=== PATIENT | female | born 1950 | race Caucasian/White ===

== ENCOUNTER → 2019-05-12 12:24 | Outpatient (CLI) | payer MEDICARE, SELFPAY ==
--- NOTE | 2019-05-12 | IMM_PTH ---
PATIENT: VY ALMANZA LOC: [facility] U#:[id number] AGE/SX: 74/F ROOM: RE05/12/[address]: Dr. Alex Rocha MD : 1950 BED: DIS: SPEC #: [id number] RECD: 05/13/19 14:07 STATUS: CINDY REOskar #: [id number] BRIAN: 05/12/19 00:[address]: Alex Rocha DEPT: IMMUNOHISTOCHEMISTRY RECD BY: Shanel Curiel Tissues: Stomach, NOS Procedures: H Pylori (initial) PHYSICIAN & INSTITUTION [place] [id number] SPECIMEN INFORMATION: Tissue Source: Antral biopsy Clinical Info: R13.10, R09.89 Specimen Number: [id number] CPT code: 48990 METHODOLOGY: Deparaffinized sections of prefer/formalin-fixed tissue or PAP/DQ stained slides are incubated with monoclonal/polyclonal antibodies/oligonucleotide probes. Localization is made via biotin free immunoperoxidase method. Appropriate controls are performed and reacted as expected. Results on target cell population are indicated in the following table: RESULTS: ANTIBODY / CLONE RESULT H Pylori (polyclonal) negative These tests were developed and their performance characteristics determined by [facility]. They may not have been cleared or approved by the [place]. Food and Drug Administration. The FDA has determined that such clearance or approval is not necessary. INTERPRETATION: Antral biopsy: Negative for Helicobacter pylori organisms. AM:jessi 05/14/19
--- NOTE | 2019-05-12 | EGD_PTH ---
PATIENT: VY ALMANZA [facility] U#:[id number] AGE/SX: 74/F ROOM: RE05/12/[address]: Dr. Alex Rocha MD : 1950 BED: DIS: SPEC #: [id number] RECD: 05/13/19 12:23 STATUS: CINDY ANURADHA #: [id number] BRIAN: 05/12/19 00:[address]: Alex Rocha DEPT: SURGICAL PATHOLOGY RECD BY: Boom Centeno Tissues: Gastric mucous membrane Procedures: Surgery Specimen Level IV HEADER OPERATION: EGD with biopsy PRE-OP DIAGNOSIS: R13.10, R09.89 TISSUE SUBMITTED: Antral biopsy H/H MICROSCOPIC DIAGNOSIS Gastric antrum, biopsy: Mild chronic gastritis. See comment. AM:jessi 05/14/19 COMMENT The results of immunohistochemistry for Helicobacter pylori will be reported separately ([id number]). MICROSCOPIC DESCRIPTION Slides are reviewed. GROSS DESCRIPTION Received in fixative is one container labeled with the patient's name and designated antral biopsy. The specimen consists of two irregular fragments of light ortiz soft tissue that in aggregate measure 0.4 x 0.3 x 0.1 cm. The specimen is totally submitted in one cassette. / SJ:rg 05/13/19 TC:3 CPT: 59250
== END ==
PROVIDERS: Referring Provider Internal Medicine Gastroenterology; Visit Provider Internal Medicine Gastroenterology
DX: R13.10 Dysphagia, unspecified (principal); R09.89 Other specified symptoms and signs involving the circulatory and respiratory systems
CPT/HCPCS: 88305; 88342

== ENCOUNTER 2023-05-24 14:28 | Emergency (ER) | payer MEDICARE, SELFPAY ==
[2023-05-24 14:30] VITALS: BP 170/115; PULSE 113; RESP 18; TEMP 36.8; O2SAT 95; BMI 38.7
--- NOTE | 2023-05-24 14:48 | CT_ITS ---
STUDY: CT BRAIN WITHOUT CONTRAST REASON FOR EXAM: Female, 72 years old. Deficit RADIATION DOSAGE (If Supplied By Facility): CTDIvol = ( 44.99 ) mGy, DLP = ( 745.49 ) mGycm TECHNIQUE: Transaxial CT imaging of the brain was performed without administration of intravenous contrast material. Individualized dose optimization techniques were used for this CT. COMPARISON: No relevant priors. FINDINGS: Normal soft tissue structures. Normal calvarium. Normal size ventricles and extra-axial spaces for the patient''s age. Mild white matter microangiopathic ischemic changes of the cerebral hemispheres. Normal basal ganglia and thalami. Normal brainstem. Normal cerebellum. There is no intracranial hemorrhage. There are no findings of an acute ischemic infarction. Normal visualized paranasal sinuses. CT/Brain/Head without Contrast IMPRESSION: Age-related changes of the brain. Electronically Signed: Samy Cotto DO at 17:03 EST ,
--- NOTE | 2023-05-24 14:49 | EKG12_ITS ---
Test Reason : DYSRHYTHMIA Blood Pressure : / mmHG Vent. Rate : 094 BPM Atrial Rate : 094 BPM P-R Int : 176 ms QRS Dur : 088 ms QT Int : 380 ms P-R-T Axes : 056 057 023 degrees QTc Int : 475 ms Normal sinus rhythm Low voltage QRS Borderline ECG Confirmed by VOLODYMYR SUE, SARINA ([id number]), video editor RUBIN LUNDY ([id number]) on 05/28/2023 7:01:39 AM Referred By: FAVIAN Confirmed By:CLARY HELM MD
--- NOTE | 2023-05-24 14:53 | EDS_ITS ---
HPI <Dr. Bandar Vizcaino DO - Last Filed: 05/26/23 07:14> History of Present Illness Chief Complaint: Neuro S/Sx Informant: patient Onset/Context/Timing Onset: Weeks (1) Context: Gradual Onset Timing: Continuous Quality: Tingling Location: Left arm Worsened by: Nothing Relieved by: Nothing Narrative Narrative: Patient presents with left arm tingling and lightheadedness that has been constant for the past week. Patient states she has had some constant tingling in her left arm. Patient states nothing makes it better or worse. Patient states she has been having some intermittent lightheadedness. Patient states this is worse with prolonged sitting and then standing up quickly. Patient denies any chest pain. Patient denies any shortness of breath. Patient denies any trauma or injury. Patient denies any weakness. [facility] <Dr. Bandar Vizcaino DO - Last Filed: 05/26/23 07:14> [facility] Medical History Anxiety HTN (hypertension) Home Medications amlodipine 2.5 mg tablet mg 05/24/23 [History Last Taken Unknown] hydrochlorothiazide 25 mg tablet mg 05/24/23 [History Last Taken Unknown] irbesartan 300 mg tablet mg 05/24/23 [History Last Taken Unknown] omeprazole 20 mg capsule,delayed release mg 05/24/23 [History Last Taken Unknown] Allergy/AdvReac Type Severity Reaction Status Date / Time No Known Allergies Allergy Verified 05/24/23 14:30 Surgical History no surgical history no surgical history Social History Smoking Status: Never smoker ROS <Dr. Bandar Vizcaino DO - Last Filed: 05/26/23 07:14> ROS ED Constitutional Constitutional ED: Denies chills or fever(s) Eyes Eyes: Denies blurry vision or change in vision ENT ENT ED: Denies rhinorrhea or sore throat Cardiovascular Cardiovascular: Denies chest pain or palpitations Respiratory/Chest Respiratory/Chest: Denies cough or dyspnea Gastrointestinal Gastrointestinal: Denies nausea or vomiting Genitourinary Genitourinary ED: Denies dysuria or hematuria Musculoskeletal Musculoskeletal: Reports back pain; Denies neck pain Integumentary Denies abscess or rash Neurologic Neurologic: Reports paresthesias; Denies headache(s) or weakness Allergic/Immunologic Allergic/Immunologic ED: Denies mouth swelling or urticaria EXAM <Dr. Bandar Vizcaino, DO - Last Filed: 05/26/23 07:14> Physical Exam Const Vital Signs: 05/24/23 14:30 05/24/23 15:21 05/24/23 16:16 Temperature 98.2 F Temperature Source Temporal Pulse Rate 113 H 96 Pulse Rate [Lying] 96 Pulse Rate [Sitting (for 1 minute prior to obtaining)] 100 Pulse Rate [Standing (for 1 minute prior to obtaining)] 115 H Respiratory Rate 18 18 Blood Pressure 170/115 H 145/90 H Blood Pressure [Lying] 164/96 H Blood Pressure [Sitting (for 1 minute prior to obtaining)] 173/104 H Blood Pressure [Standing (for 1 minute prior to obtaining)] 183/106 H Blood Pressure Mean 133 108 Blood Pressure Mean [Lying] 118 Blood Pressure Mean [Sitting (for 1 minute prior to obtaining)] 127 Blood Pressure Mean [Standing (for 1 minute prior to obtaining)] 131 Pulse Ox 95 95 Oxygen Delivery Method Room Air Room Air 05/24/23 17:50 Temperature Temperature Source Pulse Rate 90 Pulse Rate [Lying] Pulse Rate [Sitting (for 1 minute prior to obtaining)] Pulse Rate [Standing (for 1 minute prior to obtaining)] Respiratory Rate 17 Blood Pressure 151/95 H Blood Pressure [Lying] Blood Pressure [Sitting (for 1 minute prior to obtaining)] Blood Pressure [Standing (for 1 minute prior to obtaining)] Blood Pressure Mean 113 Blood Pressure Mean [Lying] Blood Pressure Mean [Sitting (for 1 minute prior to obtaining)] Blood Pressure Mean [Standing (for 1 minute prior to obtaining)] Pulse Ox 95 Oxygen Delivery Method Room Air Positive well nourished, well developed and obese General Appearance ED: well developed and NAD Nutritional Appearance: obese HEENT Reports moist mucous membranes Neck supple and no JVD Neck Narrative: There is no cervical spine tenderness or paraspinal tenderness. There is full range of motion. General: Negative for tenderness Resp normal respiratory effort and clear to auscultation bilaterally Cardio regular rate and regular rhythm GI non-tender and non-distended Palpation: soft Extremity normal to inspection General Extremety ED: Negative for edema or tenderness General Extremity: Negative for edema Neuro oriented x3 and CN's II-XII intact bilaterally Neuro Narrative: There is slight decreased sensation to light touch in the left hand on both the dorsal and palmar aspects of the hand. Sensation was equal bilaterally in the forearm and upper arm. Sensorium / Orientation: alert Motor Exam: strength 5/5 throughout Psych mental status grossly normal <Dr. Helio Ruiz, DO - Last Filed: 05/24/23 19:09> Physical Exam Const Vital Signs: 05/24/23 14:30 05/24/23 15:21 05/24/23 16:16 Temperature 98.2 F Temperature Source Temporal Pulse Rate 113 H 96 Pulse Rate [Lying] 96 Pulse Rate [Sitting (for 1 minute prior to obtaining)] 100 Pulse Rate [Standing (for 1 minute prior to obtaining)] 115 H Respiratory Rate 18 18 Blood Pressure 170/115 H 145/90 H Blood Pressure [Lying] 164/96 H Blood Pressure [Sitting (for 1 minute prior to obtaining)] 173/104 H Blood Pressure [Standing (for 1 minute prior to obtaining)] 183/106 H Blood Pressure Mean 133 108 Blood Pressure Mean [Lying] 118 Blood Pressure Mean [Sitting (for 1 minute prior to obtaining)] 127 Blood Pressure Mean [Standing (for 1 minute prior to obtaining)] 131 Pulse Ox 95 95 Oxygen Delivery Method Room Air Room Air 05/24/23 17:50 Temperature Temperature Source Pulse Rate 90 Pulse Rate [Lying] Pulse Rate [Sitting (for 1 minute prior to obtaining)] Pulse Rate [Standing (for 1 minute prior to obtaining)] Respiratory Rate 17 Blood Pressure 151/95 H Blood Pressure [Lying] Blood Pressure [Sitting (for 1 minute prior to obtaining)] Blood Pressure [Standing (for 1 minute prior to obtaining)] Blood Pressure Mean 113 Blood Pressure Mean [Lying] Blood Pressure Mean [Sitting (for 1 minute prior to obtaining)] Blood Pressure Mean [Standing (for 1 minute prior to obtaining)] Pulse Ox 95 Oxygen Delivery Method Room Air [facility] <Dr. Bandar Vizcaino, DO - Last Filed: 05/26/23 07:14> [facility] Narrative Medical decision making narrative: Differential diagnosis includes electrolyte abnormality, cardiac dysrhythmia, cardiac ischemia, stroke, intracranial bleeding, neuropraxia, carpal tunnel syndrome, pneumonia, and anxiety. EKG will be obtained to assess for cardiac dysrhythmia and cardiac ischemia. Chest x-ray will be obtained to assess for pneumonia and pneumothorax. CT scan of the brain will be obtained to assess for stroke and intracranial bleeding. CBC will be obtained to assess for leukocytosis and anemia. Basic metabolic profile will be obtained to assess for electrolyte abnormality and renal function. Urinalysis will be obtained to assess for urinary tract infection and hematuria. High-sensitivity troponin will be obtained to assess for cardiac ischemia. Lab Data Attestation: I reviewed the patient's lab results. Lab results narrative: CBC was reviewed and was within normal limits. Basic metabolic profile was reviewed. Potassium was slightly low at 3.4. Remainder was essentially within normal limits. High-sensitivity troponin was reviewed and was normal at 6. Labs: Laboratory Results - last 24 hr 05/24/23 05/24/23 14:55 16:10 WBC 9.2 RBC 5.15 Hgb 14.8 Hct 43.9 MCV 85.2 MCH 28.7 MCHC 33.7 RDW Std Deviation 40.6 RDW Coeff of Frankie 13.1 Plt Count 323 MPV 8.7 Immature Gran % (Auto) 0.200 Neut % (Auto) 65.4 Lymph % (Auto) 25.7 [place] % (Auto) 7.3 Eos % (Auto) 1.1 Baso % (Auto) 0.3 Absolute Neuts (auto) 6.0 Absolute Lymphs (auto) 2.36 Nucleated RBC % 0 Sodium 133 L Potassium 3.4 L Chloride 96 L Carbon Dioxide 28.0 Anion Gap 9 BUN 13 Creatinine 0.91 Estim Creat Clear Calc 61.32 Est GFR (MDRD) Af Amer 79 Est GFR (MDRD) Non-Af 65 BUN/Creatinine Ratio 14.3 Glucose 129 H Calcium 9.6 Troponin I High Sens 6 Urine Color Yellow Urine Clarity Sl. Cloudy Urine pH 7.0 Ur Specific [place] 1.010 Urine Protein Negative Urine Glucose (UA) Normal Urine Ketones Negative Urine Occult Blood Negative Urine Nitrite Negative Urine Bilirubin Negative Urine Urobilinogen Normal Ur Leukocyte Esterase 25 H Urine RBC 0 SEEN Urine WBC 0-5 SEEN Ur Squamous Epith Cells 0-5 SEEN Urine Bacteria 0 SEEN Urine Mucus 0 SEEN Radiography Chest X-Ray - ED: 2 View, Read by ED Physician, Read by Radiologist and No Acute Disease Diagnostic Testing: Clinical Impression(s) from Imaging Studies Brain CT 05/24/23 14:48 IMPRESSION: Age-related changes of the brain. Electronically Signed: Samy Cotto DO at 17:03 EST , Chest X-Ray 05/24/23 16:18 IMPRESSION: No radiographic evidence of acute cardiopulmonary disease. Electronically Signed: Samy Cotto at 16:59 EST , PA and lateral chest x-ray was obtained. There are 2 views. On my independent interpretation, lung yan are clear. There is normal cardiac silhouette. Bony thorax is normal. There is no acute process noted. Radiologist also interpreted the x-ray and agrees. EKG Initial EKG: Attestation: I personally reviewed and interpreted this EKG as follows: Interpretation: Sinus Rhythm (94) and No Acute Injury Pattern Comments: EKG was obtained. On my independent interpretation, it showed a normal sinus rhythm with a rate of 94. RI interval, QRS interval, and QTc intervals were all normal. [place] was normal. There are no acute ST or T wave changes. Prior EKG tracings: not available for review Prior: No Prior Treatment and Re-Evaluation :: Patient is feeling better on reevaluation. Patient was advised of her laboratory tests. Patient is still awaiting CT scan of the brain. Care of the patient will be turned over the oncoming physician pending CT scan. <Dr. Helio Ruiz, DO - Last Filed: 05/24/23 19:09> [facility] Narrative Medical decision making narrative: Differential diagnosis includes electrolyte abnormality, cardiac dysrhythmia, cardiac ischemia, stroke, intracranial bleeding, neuropraxia, carpal tunnel syndrome, pneumonia, and anxiety. EKG will be obtained to assess for cardiac dysrhythmia and cardiac ischemia. Chest x-ray will be obtained to assess for pneumonia and pneumothorax. CT scan of the brain will be obtained to assess for stroke and intracranial bleeding. CBC will be obtained to assess for leukocytosis and anemia. Basic metabolic profile will be obtained to assess for electrolyte abnormality and renal function. Urinalysis will be obtained to assess for urinary tract infection and hematuria. High-sensitivity troponin will be obtained to assess for cardiac ischemia. Dr. Ruiz dictating: Patient signed out to me pending results of workup. CT brain was negative. Urinalysis was normal. CBC and BMP unremarkable with exception of potassium 3.4. Glucose is 129. High-sensitivity troponin came back at 6. Chest x-ray on my interpretation shows no acute process. Patient's workup ultimately negative will continue with Dr. Marcelo's plan of discharge home with follow-up. Return precautions are discussed. Lab Data Labs: Laboratory Results - last 24 hr 05/24/23 05/24/23 14:55 16:10 WBC 9.2 RBC 5.15 Hgb 14.8 Hct 43.9 MCV 85.2 MCH 28.7 MCHC 33.7 RDW Std Deviation 40.6 RDW Coeff of Frankie 13.1 Plt Count 323 MPV 8.7 Immature Gran % (Auto) 0.200 Neut % (Auto) 65.4 Lymph % (Auto) 25.7 [place] % (Auto) 7.3 Eos % (Auto) 1.1 Baso % (Auto) 0.3 Absolute Neuts (auto) 6.0 Absolute Lymphs (auto) 2.36 Nucleated RBC % 0 Sodium 133 L Potassium 3.4 L Chloride 96 L Carbon Dioxide 28.0 Anion Gap 9 BUN 13 Creatinine 0.91 Estim Creat Clear Calc 61.32 Est GFR (MDRD) Af Amer 79 Est GFR (MDRD) Non-Af 65 BUN/Creatinine Ratio 14.3 Glucose 129 H Calcium 9.6 Troponin I High Sens 6 Urine Color Yellow Urine Clarity Sl. Cloudy Urine pH 7.0 Ur Specific [place] 1.010 Urine Protein Negative Urine Glucose (UA) Normal Urine Ketones Negative Urine Occult Blood Negative Urine Nitrite Negative Urine Bilirubin Negative Urine Urobilinogen Normal Ur Leukocyte Esterase 25 H Urine RBC 0 SEEN Urine WBC 0-5 SEEN Ur Squamous Epith Cells 0-5 SEEN Urine Bacteria 0 SEEN Urine Mucus 0 SEEN Radiography Diagnostic Testing: Clinical Impression(s) from Imaging Studies Brain CT 05/24/23 14:48 IMPRESSION: Age-related changes of the brain. Electronically Signed: Samy Cotto DO at 17:03 EST , Chest X-Ray 05/24/23 16:18 IMPRESSION: No radiographic evidence of acute cardiopulmonary disease. Electronically Signed: Samy Cotto DO at 16:59 EST Reading Location ID and State: [facility] / [place] Tel [phone], Service support , Discharge Plan Triage Chief Complaint: Neuro S/Sx ED Provider: Bandar Vizcaino Dx/Rx/DC Orders Clinical Impression: Arm paresthesia, left Instructions: ED Paraesthesias Prescriptions: No Action amlodipine 2.5 mg tablet omeprazole 20 mg capsule,delayed release(DR/EC) hydrochlorothiazide 25 mg tablet irbesartan 300 mg tablet Primary Care Provider: Yehuda Chang Disposition Disposition: Home, Self Care Discharge Date/Time: 05/24/23 19:26
--- NOTE | 2023-05-24 14:53 | ED.RN ---
NO OLD EKG
[2023-05-24 15:03] LABS: Absolute Lymphocyte Count 2.36 X10^3/uL (0.83-4.51); Basophil# 0.03 X10^3/uL; Basophil% 0.3 % (0-1); Eosinophils% 1.1 % (0-5); Hematocrit 43.9 % (37-47); Hemoglobin 14.8 g/dL (12.0-15.0); Lymphocyte # 2.36 X10^3/ul (0.83-4.51); Lymphocyte % 25.7 % (19-41); Mean Corp Hgb Conc 33.7 g/dL (32-36); Mean Corpuscular Hgb 28.7 pg (27.0-32.0); Mean Corpuscular Volume 85.2 fL (81-99); Mean Platelet Vol. 8.7 fl (6.2-12.0); Monocyte# 0.67 X10^3/uL; Monocyte% 7.3 % (0-10); NRBC Flagged by Analyzer 0 % (0-5); Neutrophil # 6.02 X10^3/uL (2.7-7.7); Neutrophil % 65.4 % (47-70); Platelet Count 323 K/mm3 (150-450); RBC Distribution Width CV 13.1 % (11.6-14.6); RBC Distribution Width SD 40.6 fl (35.1-43.9); Red Blood Count 5.15 M/mm3 (4.2-5.4); White Blood Count 9.2 K/mm3 (4.4-11.0)
[2023-05-24 15:21] VITALS: BP 164/96; BP 173/104; BP 183/106; PULSE 100; PULSE 115; PULSE 96
[2023-05-24 15:23] LABS: Anion Gap 9 (5-15); BUN 13 mg/dL (7-18); BUN/Creat Ratio 14.3 RATIO (10-20); Calcium,Total 9.6 mg/dL (8.5-10.1); Chloride 96 mmol/L (98-107); Creatinine, Serum 0.91 mg/dL (0.55-1.02); EST Glomerular Filtration Rate 65 mL/min (>60); Est Glom Filt Rate - Afr Amer 79 mL/min (>60); Estimated Creatinine Clearance 61.32 ml/min; Glucose 129 mg/dL (74-106); Potassium 3.4 mmol/L (3.5-5.1); Sodium Level 133 mmol/L (136-145); Troponin-I HS 6 pg/mL (3.0-54.0)
[2023-05-24] MEDS: 0.9% Normal Saline (1000mL) 1,000 ML 1000 ML IV (16:13)
[2023-05-24 16:16] VITALS: BP 145/90; PULSE 96; RESP 18; O2SAT 95
--- NOTE | 2023-05-24 16:18 | RAD_ITS ---
INDICATION: Lightheadedness EXAMINATION/TECHNIQUE: X-RAY - XR Chest 2 Views COMPARISON: FINDINGS: LINES/DEVICES: None. LUNGS: No consolidation, edema or effusion. No pneumothorax. MEDIASTINUM AND CARDIOVASCULAR STRUCTURES: Cardiac silhouette not enlarged. Central airways and mediastinal contour are unremarkable. BONES AND SOFT TISSUES: Unremarkable. RAD/Chest PA and Lateral IMPRESSION: No radiographic evidence of acute cardiopulmonary disease. Electronically Signed: Samy Cotto DO at 16:59 EST Reading Location ID and State: [facility] / [place] Tel [phone], Service support ,
[2023-05-24 16:19] LABS: Bacteria 0 SEEN /hpf (None Seen); Mucous, Urine 0 SEEN /hpf (<or=2+); Red Blood Cells-Urine 0 SEEN /hpf (0-5)
[2023-05-24 16:46] LABS: Color, Urine Yellow (Yellow); Glucose, Dipstick Normal (Normal); Ketone-Dipstick Negative (Negative); Leukocyte Esterase-Dipstick 25 /ul (Negative); Nitrite-Dipstick Negative (Negative); Occult Blood-Urine Negative /ul (Negative); Protein-Dipstick Negative (Negative); Urine Bilirubin Dipstick Negative (Negative); Urine Clarity Sl. Cloudy (Clear); Urine Urobilinogen Normal (Normal)
[2023-05-24 17:07] LABS: Squamous Epithelial Cells - UA 0-5 SEEN /hpf (5-10); White Blood Cells 0-5 SEEN /hpf (0-5)
[2023-05-24 17:50] VITALS: BP 151/95; PULSE 90; RESP 17; O2SAT 95
[2023-05-24 19:23] VITALS: BP 138/95; PULSE 89; RESP 17; TEMP 36.4; O2SAT 96
[2023-05-24 19:24] VITALS: BMI 38.7
--- OUTSIDE RECORDS SUMMARY | 2023-05-24 22:20 | XMS RPT_ITS | CCD ---
Author Name Unknown Address [address] [place] [address] Organization [facility] Care Team Providers Care Small Products Assembler Name Role Phone Kala Chang MD Primary Care Provider [phone] KALA CHANG Referring Unavailable VERO, KALA Lazo Primary Care Unavailable VERO, KALA Lazo Primary Care Unavailable KALA CHANG Attending Unavailable KALA CHANG Referring Unavailable VERO, KALA Lazo Primary Care Unavailable VERO, KALA Lazo Referring Unavailable VERO, KALA Lazo Primary Care Unavailable VERO, KALA Lazo Primary Care Unavailable VERO, KALA Lazo Attending Unavailable VERO, KALA Lazo Referring Unavailable VERO, KALA Lazo Primary Care Unavailable KALA CHANG Primary Care Unavailable FABY STEWART Referring Unavailable VERO, KALA Lazo Primary Care Unavailable SEBASTIAN MEYERS Attending Unavailable BECKY RYDER Referring Unavailable VERO, KALA Lazo Primary Care Unavailable BECKY RYDER Attending Unavailable BECKY RYDER Referring Unavailable VERO, KALA Lazo Primary Care Unavailable VERO, KALA Lazo Referring Unavailable GILBERT SANTOS Attending Unavailable KALA CHANG Primary Care Unavailable Medications Current Medications Medication Drug Class(es) Dates Sig (Normalized) Sig (Original) amLODIPine 2.5 mg oral tablet (20 sources) Dihydropyridine Calcium Channel Smita Start: 05-31-2021 End: 06-08-2023 take 1 tablet by mouth once daily amLODIPine (NORVASC) 2.5 mg tablet Indications: Essential hypertension , Dysmetabolic syndrome Take 1 tablet by mouth once daily. 90 tablet 3 06/08/2022 06/08/2023 Active Completed/Discontinued Medications Medication Drug Class(es) Dates Sig (Normalized) Sig (Original) calcium carbonate 1500 mg / cholecalciferol 200 unt oral tablet (20 sources) Vitamin D Start: 06-16-2013 take 1 tablet by mouth once daily calcium carbonate 600 mg-cholecalcifero l 200 units (AGUSTO-600 WITH VITAMIN D) 600 mg(1,500mg) -200 unit tab Indications: Osteopenia Take 1 tablet by mouth once daily. 0 06/16/2013 Active Problems Active Problems Problem Classification Problem Date Documented Date Episodic/Chronic Esophageal disorders (20 sources) Gastroesophageal reflux disease; Translations: [Gastro-esophageal reflux disease without esophagitis] 05-31-2021 Chronic Essential hypertension (20 sources) Essential hypertension; Translations: [Essential (primary) hypertension] Onset: 04-10-2005 Chronic Hepatitis (13 sources) Viral hepatitis C; Translations: [Unspecified viral hepatitis C without hepatic coma] 11-06-2020 Episodic Mood disorders (20 sources) Depressive disorder; Translations: [Depression] 05-27-2012 Chronic Nutritional deficiencies (20 sources) Vitamin D deficiency; Translations: [Vitamin D deficiency, unspecified] Onset: 06-16-2013 06-16-2013 Chronic Osteoporosis (20 sources) Osteoporosis; Translations: [Other osteoporosis without current pathological fracture] Onset: 04-29-2018 04-29-2018 Chronic Other and unspecified benign neoplasm (1 source) Tubular adenoma ; Translations: [Benign neoplasm, unspecified site] Episodic Other and unspecified benign neoplasm (1 source) Serrated polyp of colon; Translations: [Polyp of colon] Episodic Other eye disorders (1 source) Ptosis of eyelid; Translations: [Unspecified ptosis of bilateral eyelids] 12-06-2022 Episodic Other liver diseases (3 sources) Elevated liver enzymes level; Translations: [Abnormal levels of other serum enzymes] Episodic Other nervous system disorders (2 sources) Taste sense altered; Translations: [Parageusia] 12-06-2022 Episodic Other nutritional; endocrine; and metabolic disorders (20 sources) Obesity; Translations: [Obesity, unspecified] Onset: 08-31-2005 08-31-2005 Chronic Other nutritional; endocrine; and metabolic disorders (20 sources) Metabolic syndrome X; Translations: [Metabolic syndrome] Onset: 01-29-2009 03-21-2021 Chronic Other nutritional; endocrine; and metabolic disorders (5 sources) Obese class II; Translations: [Obesity, unspecified] Onset: 12-06-2022 12-06-2022 Chronic Other nutritional; endocrine; and metabolic disorders (1 source) Metabolic syndrome; Translations: [Dysmetabolic syndrome] Onset: 03-21-2021 Chronic Unclassified (1 source) Acute cough; Translations: [Acute cough] Onset: 05-08-2022 Past or Other Problems Problem Classification Problem Date Documented Date Episodic/Chronic Biliary tract disease (19 sources) Gallstone; Translations: [Calculus of gallbladder without cholecystitis without obstruction] Onset: 01-30-2022 Episodic Blindness and vision defects (2 sources) Eye strain; Translations: [Unspecified subjective visual disturbances] Onset: 12-06-2022 12-06-2022 Episodic Diabetes mellitus without complication (20 sources) Hyperglycemia; Translations: [Hyperglycemia, unspecified] Onset: 05-08-2019 05-08-2019 Episodic Diseases of mouth; excluding dental (3 sources) Burning mouth syndrome ; Translations: [Glossodynia] Onset: 12-06-2022 12-06-2022 Episodic Fluid and electrolyte disorders (2 sources) Hyponatremia; Translations: [Hypo-osmolality and hyponatremia] Onset: 12-06-2022 12-06-2022 Episodic Other eye disorders (1 source) Unspecified ptosis of bilateral eyelids; Translations: [Ptosis of both eyelids] Onset: 12-06-2022 Episodic Other infections; including parasitic (9 sources) History of hepatitis C; Translations: [Personal history of other infectious and parasitic diseases] Onset: 06-08-2022 Episodic Other liver diseases (1 source) Abnormal levels of other serum enzymes; Translations: [Elevated liver enzymes] Onset: 06-08-2022 Episodic Other nervous system disorders (1 source) Parageusia; Translations: [Dysgeusia] Onset: 12-06-2022 Episodic Other screening for suspected conditions (not mental disorders or infectious disease) (6 sources) Patient encounter status; Translations: [Encounter for screening mammogram for malignant neoplasm of breast] Onset: 04-19-2022 Episodic Results Test Name Value Interpretation Reference Range Facil ity Vital Signs Date Time Vital Sign Value Performing Clinician Monse jordan 12-06-2022 13:03-040 Body height 157.5 cm Kala Chang MD Work Phone: [facility] 12-06-2022 13:03-040 Body weight 96.34 kg Kala Chang MD Work Phone: [facility] 12-06-2022 13:03-0400 Diastolic blood pressure 90 mm[Hg] Kala Chang MD Work Phone: [facility] 12-06-2022 13:03-0400 Heart rate 87 /min Kala Chang MD Work Phone: [facility] 12-06-2022 13:03-0400 SaO2% (BldA) [Mass fraction] 96 % Kala Chang MD Work Phone: [facility] 12-06-2022 13:03-0400 Systolic blood pressure 138 mm[Hg] Kala Chang MD Work Phone: [facility] 06-08-2022 08:36-0400 Body height 157.5 cm Kala Chang MD Work Phone: [facility] 06-08-2022 08:36-0400 Body weight 97.16 kg Kala Chang MD Work Phone: [facility] 06-08-2022 08:36-0400 Diastolic blood pressure 86 mm[Hg] Kala Chnag MD Work Phone: [facility] 06-08-2022 08:36-0400 Heart rate 100 /min Kala Chang MD Work Phone: [facility] 06-08-2022 08:36-0400 SaO2% (BldA) [Mass fraction] 95 % Kala Chang MD Work Phone: [facility] 06-08-2022 08:36-0400 Systolic blood pressure 128 mm[Hg] Kala Chang MD Work Phone: [facility] 04-26-2022 09:49-0500 Body height 157.5 cm Sebastian Ramf PA-C Work Phone: [facility] 04-26-2022 09:49-0500 Body temperature 99 [degF] Sebastian Luigi PA-C Work Phone: [facility] 04-26-2022 09:49-0500 Body weight 98.43 kg Sebastian Luigi PA-C Work Phone: [facility] 04-26-2022 09:49-0500 Diastolic blood pressure 80 mm[Hg] Sebastian [place] PA-C Work Phone: [facility] 04-26-2022 09:49-0500 Heart rate 98 /min Sebastian [place] PA-C Work Phone: [facility] 04-26-2022 09:49-0500 SaO2% (BldA) [Mass fraction] 93 % Sebastian Luigi PA-C Work Phone: [facility] 04-26-2022 09:49-0500 Systolic blood pressure 124 mm[Hg] Sebastian Luigi PA-C Work Phone: [facility] 04-19-2022 11:22-0500 Heart rate 98 /min Becky Ryder MD Work Phone: [facility] 04-19-2022 11:22-0500 SaO2% (BldA) [Mass fraction] 97 % Becky Ryder MD Work Phone: [facility] 04-19-2022 11:12-0500 Diastolic blood pressure 78 mm[Hg] Becky Ryder MD Work Phone: [facility] 04-19-2022 11:12-0500 Respiratory rate 18 /min Becky Ryder MD Work Phone: [facility] 04-19-2022 11:12-0500 Systolic blood pressure 165 mm[Hg] Becky Ryder MD Work Phone: [facility] 04-19-2022 09:16-0500 Body temperature 98.49 [degF] Becky Ryder MD Work Phone: [facility] 04-19-2022 09:16-0500 Body weight 98.6 kg Becky Ryder MD Work Phone: [facility] 03-07-2022 08:15-0500 Body height 157.5 cm Becky Ryder MD Work Phone: [facility] 03-07-2022 08:15-0500 Body temperature 98.8 [degF] Becky Ryder MD Work Phone: [facility] 03-07-2022 08:15-0500 Body weight 98.61 kg Becky Ryder MD Work Phone: [facility] 03-07-2022 08:15-0500 Diastolic blood pressure 86 mm[Hg] Becky Ryder MD Work Phone: [facility] 03-07-2022 08:15-0500 Heart rate 102 /min Becky Ryder MD Work Phone: [facility] 03-07-2022 08:15-0500 SaO2% (BldA) [Mass fraction] 92 % Becky Ryder MD Work Phone: [facility] 03-07-2022 08:15-0500 Systolic blood pressure 124 mm[Hg] Becky Ryder MD Work Phone: [facility] Encounters Encounter Date Encounter Type Care Provider Facility Start: 02-23-2023 Refill aKla Chang MD Work Phone: [facility] [place] Procedures Date Procedure Procedure Detail Performing Clinician Start: 12-06-2022 INFLUENZA VACCINE, P RSV FREE, AGE 65+ YR, HIGH DOSE, QUADRIVALENT (FLUZONE HIGH-DOSE) Kala Chang MD Work Phone: Start: 12-01-2022 Lipid 1996 panel - S daren or Plasma Kala Chang MD Work Phone: Start: 04-19-2022 Level iv surg pathol ogy gross&microscopic exam Becky Ryder MD Work Phone: Start: 04-19-2022 Colonoscopy flx dx w /collj spec when pfrmd Becky Ryder MD Work Phone: Start: 04-19-2022 Colonoscopy Sebastianxiao bartlett PA-C Work Phone: Start: 01-27-2022 Us abdominal real ti me w/image limited Kala Chang MD Work Phone: Start: 01-13-2021 Mammography Kala Velasquez MD Work Phone: Start: 04-18-2019 Colonoscopy Kala Velasquez MD Work Phone: Plan of Treatment Date Care Activity Detail Author Start: 04-18-2029 Colonoscopy COLONOSCOPY [facility] Start: 04-18-2029 COLORECTAL CANCER SCREENING COLORECTAL CANCER SCREENING [facility] Start: 12-02-2027 Lipid 1996 panel - S daren or Plasma Lipid Screening [facility] Start: 06-06-2027 LIPID SCREEN LIPID SCREEN [facility] Start: 04-19-2027 Colonoscopy COLONOSCOPY [facility] Start: 04-19-2027 COLORECTAL CANCER SCREENING COLORECTAL CANCER SCREENING [facility] Start: 04-19-2026 LIPID SCREEN LIPID SCREEN [facility] Start: 12-01-2025 Diabetes Screening Diabetes Screenin g [facility] Start: 06-08-2025 [facility]AB[facility] Start: 06-05-2025 [facility]ABET[facility] Start: 06-16-2024 Urine microalbumin profile [facility] Start: 04-19-2024 DIABETES SCREEN DIABETES SCREEN [facility] Start: 12-07-2023 Annual PCP Team Operations Research Manager chuy Disease Visit Annual PCP Team Chronic Disease Visit [facility] Start: 06-09-2023 ANNUAL 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 DISEASE VISIT ANNUAL PCP TEAM CHRONIC DISEASE VISIT [facility] Start: 06-09-2023 SHINGRIX VACCINE (1 of 2) PATEL GRIX VACCINE (1 of 2) [facility] Immunizations Immunization Date Immunization Notes Care Provider Jus chauhan 12-06-2022 influenza (HD-IIV4) vaccine, age 65+ yr, high dose, quadrivalent, PF (FLUZONE HIGH-DOSE) Kala Chang MD Work Phone: [facility] 02-22-2022 COVID-19 booster vaccine, age 12+ yr, bivalent (PFIZER-BIONTECH) Becky Ryder MD Work Phone: [facility] 02-22-2022 Seasonal, quadrivale nt, recombinant, injectable influenza vaccine, preservative free Kala Chang MD Work Phone: [facility] 02-22-2022 Seasonal, trivalent, recombinant, injectable influenza vaccine, preservative free Becky Ryder MD Work Phone: [facility] 01-04-2021 influenza, high-dose , quadrivalent vaccine (FLUZONE HIGH DOSE QUADRIVALENT) Becky Ryder MD Work Phone: [facility] 06-20-2020 COVID-19 vaccine, ag e 12+ yr (PFIZER-BIONTECH - PURPLE TOP) Kala Chang MD Work Phone: [facility] 05-30-2020 COVID-19 vaccine, ag e 12+ yr (PFIZER-BIONTECH - PURPLE TOP) Kala Chang MD Work Phone: [facility] 12-30-2019 influenza, high dose seasonal, preservative-free Kala Chang MD Work Phone: [facility] 12-30-2019 influenza, high-dose , quadrivalent vaccine (FLUZONE HIGH DOSE QUADRIVALENT) Kala Chang MD Work Phone: [facility] 02-18-2019 influenza, high dose seasonal, preservative-free Kala Chang MD Work Phone: [facility] 02-17-2018 influenza, injectabl e, quadrivalent, preservative free Kala Chang MD Work Phone: [facility] 02-17-2018 pneumococcal polysaccharide vaccine, 23 valent Kala Chang MD Work Phone: [facility] 02-24-2017 pneumococcal conjuga te vaccine, 13 valent Kala Chang MD Work Phone: [facility] 06-16-2014 tetanus toxoid, redu javed diphtheria toxoid, and acellular pertussis vaccine, adsorbed Kala Chang MD Work Phone: [facility] 04-15-2009 novel influenza-H1N1 -09, preservative-free, injectable Kala Chang MD Work Phone: [facility] 01-01-2008 influenza virus vacc ine, unspecified formulation Kala Chang MD Work Phone: [facility] Work Phone: 06-27-2003 diphtheria and tetan us toxoids, adsorbed for pediatric use Kala Chang MD Work Phone: [facility] Work Phone: Payers Date Payer Category Payer Unknown [employer]IM[employer]IME [employer] HMO POS [id number] 2019-Present [phone] [address] [place] [address] O [id number] 2019 Unknown PRIM[employer]IME [employer]IM[employer] O POS [id number] 2019-Present [phone] [address] [place] [address] O [id number] 2019 Unknown [id number] Social History Date Type Detail Facility Start: 04-19-2022 Tobacco smoking status NHIS Never sm oked tobacco [facility] Start: 05-31-2021 End: 01-04-2023 Alcohol intake Current drinker of alcohol (finding) [facility] Start: 11-01-2020 History SDOH Alcohol Frequency 4 [facility] Start: 11-01-2020 History SDOH Alcohol Std Drinks 1 [facility] Start: 05-27-2012 History SDOH Alcohol Comment quit drinking 2011 with Hep C Dx, 2-3 glasses/d of wine before. [facility] Start: 11-01-2020 History SDOH Social Connections Phone 5 [facility] Start: 11-01-2020 History SDOH Social Connections Get Together 2 [facility] Start: 11-01-2020 History SDOH Social Connections Christian 98 [facility] Start: 05-29-2021 History SDOH Housing Unable to Pay 3 [facility] Start: 11-01-2020 Education 12 [facility] Start: 1950 Sex Assigned At Not on file C [facility] Start: 04-19-2022 Tobacco use and exposure Smoke less tobacco non-user [facility] Start: 05-01-2022 End: 12-06-2022 Alcohol intake [facility] Start: 04-19-2022 Alcohol Comment 2 shots vodka daily [facility] Start: 11-01-2020 End: 12-06-2022 Social connection and isolation panel [facility] How often do you att end baptist or synagogue services? Patient refused [facility] Do you belong to any clubs or organizations such as baptist groups, unions, fraternal or athletic groups, or school groups? No [facility] Are you now , , , , never or living with a partner? [facility] How often to you hav e a drink containing alcohol? 2-3 time sa week [facility] How many standard dr inks containing alcohol do you have on a typical day? 1 or 2 [facility] How often do you hav e 6 or more drinks on 1 occasion? Never [facility] Do you feel stress - tense, restless, nervous, or anxious, or unable to sleep at night because your mind is troubled all the time - these days [OSQ] Only a little [facility] (I/We) worried whebeverly er (my/our) food would run out before (I/we) got money to buy more. Never true [facility] Clinical Notes 11-08-2007 to 02-23-2023 Telephone Encounter - Charles Parry - 02/23/2023 3:08 PM Gilbert Valenzuela MD - 01/04/2023 3:02 PM Kala Palm MD - 12/06/2022 12:51 PM EDTPatient InstructionsPatient Instructions Note Date & Type Note Facility 02-23-2023 Miscellaneous Notes Patient phones requesting refills as follows: Requested Prescriptions Pending Prescriptions Disp Refills omeprazole (PRILOSEC) 20 mg capsule 30 capsule 5 Sig: Take 1 capsule by mouth once daily. TAKE 1 CAPSULE BY MOUTH ONCE DAILY 1/2 HOUR BEFORE BREAKFAST CORDELIA 12/06/22 NOV no upcoming appt Please review and advise. Charles Parry documented in this encounter [facility] 01-24-2023 Note Patient Outreach (IN [facility]) KELLYVY CERDA Logan ([id number]) 1950 F Date Time Provider Department 01/24/23 KALA CHANG During your visit today, we recorded the following information about you: Allergies As of Date: 01/24/2023 (No Known Allergies) Date Reviewed: 01/04/2023 Reviewed by: Elsy Marks - Fully Assessed Visit Diagnosis:Encounter for screening mammogram for breast cancer [Z12.31] Order(s):[facility] SCREENING [[id number]] Order #: [id number] FUTURE Prescriptions as of 01/29/2023 - gabapentin (NEURONTIN) 100 mg capsule Take 1 capsule by mouth three times a day for 90 days. - omeprazole (PRILOSEC) 20 mg capsule Take 1 capsule by mouth once daily. TAKE 1 CAPSULE BY MOUTH ONCE DAILY 1/2 HOUR BEFORE BREAKFAST - amLODIPine (NORVASC) 2.5 mg tablet Take 1 tablet by mouth once daily. - hydroCHLOROthiazide 25 mg tablet Take 1 tablet by mouth once daily. - irbesartan (AVAPRO) 300 mg tablet Take 1 tablet by mouth once daily. - MULTIVITAMIN ORAL Take by mouth. - Cholecalciferol, Vitamin D3, 1,000 unit cap Take 4 capsules by mouth once daily. - calcium carbonate 600 mg-cholecalciferol 200 units (AGUSTO-600 WITH VITAMIN D) 600 mg(1,500mg) -200 unit tab Take 1 tablet by mouth once daily. Problem List As Of Date 01/24/2023 Noted Resolved Essential hypertension [I10] 04/10/2005 OBESITY [E66.9] 08/31/2005 Osteopenia [M85.80] 11/08/2007 04/29/2018 Dysmetabolic syndrome [E88.810] 01/29/2009 Hepatitis C [B19.20] 06/08/2022 Depression [F32.A] GERD (gastroesophageal reflux disease) [K21.9] Vitamin D deficiency [E55.9] Other osteoporosis without current pathological*04/29/2018 Hyperglycemia [R73.9] 05/08/2019 Gallstones [K80.20] 01/30/2022 History of hepatitis C [Z86.19] 06/08/2022 Obesity, Class II, BMI 35-39.9 [E66.9] 12/06/2022 Encounter Status:Closed by EPIC, PRODUSER on 01/29/23 [facility] 01-04-2023 Note HNO ID: [id number] Author: Gilbert Santos MD Service: ? Author Type: Physician Type: Progress Notes Filed: 01/04/2023 3:06 PM Note Text: This consult is seen at the kind request of Dr. Kala Chang of family medicine, and my final recommendations will be communicated to the requesting health care provider by way of shared electronic medical record. This note is formatted with the impression and plan first and the history and physical to follow. 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 RECOMMENDATION/PLAN I informed the patient that her symptom consistent with burning mouth syndrome. However, typically burning mouth syndrome does not affect a person's taste. I recommend a trial of gabapentin to see if will help with her symptoms. I recommend she starts with the 100 mg at night and titrated up to 100 mg 3 times a day if her symptoms fail to improve after 4 to 7 days. I asked the patient to stop increasing dose if she experiences significant drowsiness or if the burning sensation goes away. I will see her back in 1 month for follow-up. If her taste continues to be affected, consider referral to neurology for further evaluation. Chief Complaint Burning sensation on the tongue and lip, change in taste History of Present Illness Vy Osorio is a 72 year old female presents for evaluation of burning sensation on her tongue and lower lip as well as change in her taste. Patient symptom started about 3 months ago. She feels a constant burning sensation on her tongue as well as her lower lip and she feels like her taste has been affected. She stated that things do not taste the same. She denies worsening of her symptoms over the last 3 months. She denies any other pain in her mouth or any trouble swallowing. She denies history of smoking. She denies any nasal obstruction or changes in her sense of smell. PAST MEDICAL HISTORY Diagnosis Date Depression Dysmetabolic syndrome Impaired FBS Essential hypertension, benign GERD (gastroesophageal reflux disease) occasional Hepatitis C 2012 Treatment/remission 2011 Osteopenia Vitamin D deficiency 2012 PAST SURGICAL HISTORY Procedure Laterality Date DELIVERY ONLY 1982 , low cervical COLONOSCOPY FLX DX W/COLLJ SPEC WHEN PFRMD 07/17/2006 repeat 2017 COLONOSCOPY SCREENING 04/19/2022 adenomatous polyp, repeat in 5 years [facility] (MISSED AB 1ST TRIMESTER) 1975 ESOPHAGOGASTRODUODENOSCOPY TRANSORAL DIAGNOSTIC 05/12/2019 EGD EYE SURGERY HX VAGINAL HYSTERECTOMY FAMILY HISTORY Problem Relation Age of Onset Hypertension Mother Ischemic Heart Disease Mother RI other (dementia) Mother Hypertension Father 25 years old Kidney Disease Sister Diabetes Maternal Aunt Diabetes Maternal Uncle Breast Cancer Sister Half Sister Diabetes Sister Hypertension Sister Hypertension Brother CURRENT OUTPATIENT MEDICATIONS Current Outpatient Medications on File Prior to Visit Medication Sig amLODIPine (NORVASC) 2.5 mg tablet Take 1 tablet by mouth once daily. calcium carbonate 600 mg-cholecalciferol 200 units (AGUSTO-600 WITH VITAMIN D) 600 mg(1,500mg) -200 unit tab Take 1 tablet by mouth once daily. Cholecalciferol, Vitamin D3, 1,000 unit cap Take 4 capsules by mouth once daily. hydroCHLOROthiazide 25 mg tablet Take 1 tablet by mouth once daily. irbesartan (AVAPRO) 300 mg tablet Take 1 tablet by mouth once daily. MULTIVITAMIN ORAL Take by mouth. omeprazole (PRILOSEC) 20 mg capsule Take 1 capsule by mouth once daily. TAKE 1 CAPSULE BY MOUTH ONCE DAILY 1/2 HOUR BEFORE BREAKFAST No current facility-administered medications on file prior to visit. ALLERGIES ALLERGIES No Known Allergies The remainder of the patient's history and review of systems is on the outpatient questionaire which was reviewed by me and placed in the outpatient chart. PHYSICAL EXAMINATION Appearance: General examination of the patient's external face, head and neck reveals no abnormalities. The patient is not retrognathic The patient's voice is strong and clear and they communicate easily. Ears: Exam of the ears revealed normal appearing external auditory canals, tympanic membranes, and middle ears. No signs of infection or fluid were seen. Nose: External nasal exam was normal. Throat: There were no lesions to visualization or palpation of the lips, cheeks, gums, floor of mouth, tongue, hard and soft palate, tonsillar pillars or posterior pharyngeal wall. Neck: Palpation of the neck revealed no adenopathy, salivary gland masses or asymmetry, or thyroid masses or enlargement. Gilbert Santos MD [facility] 01-04-2023 History of Present illness Narrative This consult is seen at the kind request of Dr. Kala Chang of family medicine, and my final recommendations will be communicated to the requesting health care provider by way of shared electronic medical record. This note is formatted with the impression and plan first and the history and physical to follow. 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 RECOMMENDATION/PLAN I informed the patient that her symptom consistent with burning mouth syndrome. However, typically burning mouth syndrome does not affect a person's taste. I recommend a trial of gabapentin to see if will help with her symptoms. I recommend she starts with the 100 mg at night and titrated up to 100 mg 3 times a day if her symptoms fail to improve after 4 to 7 days. I asked the patient to stop increasing dose if she experiences significant drowsiness or if the burning sensation goes away. I will see her back in 1 month for follow-up. If her taste continues to be affected, consider referral to neurology for further evaluation. Chief Complaint Burning sensation on the tongue and lip, change in taste History of Present Illness Vy Osorio is a 72 year old female presents for evaluation of burning sensation on her tongue and lower lip as well as change in her taste. Patient symptom started about 3 months ago. She feels a constant burning sensation on her tongue as well as her lower lip and she feels like her taste has been affected. She stated that things do not taste the same. She denies worsening of her symptoms over the last 3 months. She denies any other pain in her mouth or any trouble swallowing. She denies history of smoking. She denies any nasal obstruction or changes in her sense of smell. PAST MEDICAL HISTORY Diagnosis Date Depression Dysmetabolic syndrome Impaired FBS Essential hypertension, benign GERD (gastroesophageal reflux disease) occasional Hepatitis C 2012 Treatment/remission 2012 Osteopenia Vitamin D deficiency 2013 PAST SURGICAL HISTORY Procedure Laterality Date DELIVERY ONLY 1982 , low cervical COLONOSCOPY FLX DX W/COLLJ SPEC WHEN PFRMD 07/17/2006 repeat 2017 COLONOSCOPY SCREENING 04/19/2022 adenomatous polyp, repeat in 5 years D&C (MISSED AB 1ST TRIMESTER) 1975 ESOPHAGOGASTRODUODENOSCOPY TRANSORAL DIAGNOSTIC 05/12/2019 EGD EYE SURGERY HX VAGINAL HYSTERECTOMY FAMILY HISTORY Problem Relation Age of Onset Hypertension Mother Ischemic Heart Disease Mother RI other (dementia) Mother Hypertension Father 25 years old Kidney Disease Sister Diabetes Maternal Aunt Diabetes Maternal Uncle Breast Cancer Sister Half Sister Diabetes Sister Hypertension Sister Hypertension Brother CURRENT OUTPATIENT MEDICATIONS Current Outpatient Medications on File Prior to Visit Medication Sig amLODIPine (NORVASC) 2.5 mg tablet Take 1 tablet by mouth once daily. calcium carbonate 600 mg-cholecalciferol 200 units (AGUSTO-600 WITH VITAMIN D) 600 mg(1,500mg) -200 unit tab Take 1 tablet by mouth once daily. Cholecalciferol, Vitamin D3, 1,000 unit cap Take 4 capsules by mouth once daily. hydroCHLOROthiazide 25 mg tablet Take 1 tablet by mouth once daily. irbesartan (AVAPRO) 300 mg tablet Take 1 tablet by mouth once daily. MULTIVITAMIN ORAL Take by mouth. omeprazole (PRILOSEC) 20 mg capsule Take 1 capsule by mouth once daily. TAKE 1 CAPSULE BY MOUTH ONCE DAILY 1/2 HOUR BEFORE BREAKFAST No current facility-administered medications on file prior to visit. ALLERGIES ALLERGIES No Known Allergies The remainder of the patient's history and review of systems is on the outpatient questionaire which was reviewed by me and placed in the outpatient chart. PHYSICAL EXAMINATION Appearance: General examination of the patient's external face, head and neck reveals no abnormalities. The patient is not retrognathic The patient's voice is strong and clear and they communicate easily. Ears: Exam of the ears revealed normal appearing external auditory canals, tympanic membranes, and middle ears. No signs of infection or fluid were seen. Nose: External nasal exam was normal. Throat: There were no lesions to visualization or palpation of the lips, cheeks, gums, floor of mouth, tongue, hard and soft palate, tonsillar pillars or posterior pharyngeal wall. Neck: Palpation of the neck revealed no adenopathy, salivary gland masses or asymmetry, or thyroid masses or enlargement. Gilbert Santos MD documented in this encounter [facility] 12-06-2022 Note HNO ID: [id number] Author: Kala Chang MD Service: ? Author Type: Physician Type: Progress Notes Filed: 12/06/2022 4:21 PM Note Text: Patient presents with: 6 Month Exam HPI: Patient presents today for office visit for follow up. Over the last couple of months has noticed a tingling/burning sensation on her tongue and in the inside of her bottom lip. Some days sensation is worse but it's always there. Refers to this interfering with her taste buds. Things don't taste quite as they should. No issues with smell. Did not have covid that she is aware of. States the tingling is across both sides of the mouth and tongue. Has been there for two months. No sinus congestion. Also complains of pressure/heaviness in both her eyes for about the same time. States she knows her eyes are open but they feel like they're drooping. In her head she feels foggy. She thinks it started before the mouth issues. Does note occasional issues walking up and down stairs with her vision. Had one fall once. Denies vision changes. No diplopia. Denies slurred speech No headaches No numbness or weakness that is focal. No dizziness. No muscle spasms. She feels her lids are dropping in the mornings. No issues with breathing. GERD: Currently using Omeprazole daily with symptom relief. No issues. Continues on Amlodipine 2.5 mg daily along with HCTZ 25 mg daily and Irbesartan for blood pressure. Monitors BP occ Denies chest pain or shortness of breath No headaches or dizziness No syncope No swelling PSYCH: No longer taking Celexa. Refers to doing pretty well emotionally since coming off Celexa. Some days she's down but nothing severe she says. Has been doing PT for ongoing B/L hip pain. Still with pain in hips but states it's helping some. Is leaving for [place] in a little over a week. I will follow up when she returns. Component Latest Ref Rng AND Units 12/01/2022 WBC 3.70 - 11.00 k/uL 6.35 RBC 3.90 - 5.20 m/uL 5.14 Hemoglobin 11.5 - 15.5 g/dL 14.3 Hematocrit 36.0 - 46.0 % 44.2 MCV 80.0 - 100.0 fL 86.0 MCH 26.0 - 34.0 pg 27.8 MCHC 30.5 - 36.0 g/dL 32.4 RDW-CV 11.5 - 15.0 % 13.2 Platelet Count 150 - 400 k/uL 320 MPV 9.0 - 12.7 fL 9.8 Neut% % 61.8 Abs Neut (ANC) 1.45 - 7.50 k/uL 3.92 Lymph% % 26.9 Abs Lymph 1.00 - 4.00 k/uL 1.71 [place]% % 8.8 Abs [place] <0.87 k/uL 0.56 Eosin% % 1.3 Abs Eosin <0.46 k/uL 0.08 Baso% % 0.9 Abs Baso <0.11 k/uL 0.06 Immature Gran % % 0.3 IMMATURE GRANS (ABS) <0.10 k/uL <0.03 NRBC /100 WBC 0.0 Absolute nRBC <0.01 k/uL <0.01 DTYPE Auto Protein, Total 6.3 - 8.0 g/dL 7.6 Albumin 3.9 - 4.9 g/dL 4.2 Calcium 8.5 - 10.2 mg/dL 9.5 Bilirubin, Total 0.2 - 1.3 mg/dL 0.5 Alkaline Phosphatase 34 - 123 U/L 113 AST 13 - 35 U/L 20 ALT 7 - 38 U/L 16 Glucose 74 - 99 mg/dL 116 (H) BUN 7 - 21 mg/dL 9 Creatinine 0.58 - 0.96 mg/dL 0.69 Sodium 136 - 144 mmol/L 132 (L) Potassium 3.7 - 5.1 mmol/L 3.9 Chloride 97 - 105 mmol/L 94 (L) CO2 22 - 30 mmol/L 25 Anion Gap 9 - 18 mmol/L 13 eGFR >=60 mL/min/1.73mA? 93 Hemoglobin A1C 4.3 - 5.6 % 6.0 (H) Estimated Average Glucose mg/dL 126 MEDICATIONS: Current Outpatient Medications Medication Sig omeprazole (PRILOSEC) 20 mg capsule Take 1 capsule by mouth once daily. TAKE 1 CAPSULE BY MOUTH ONCE DAILY 1/2 HOUR BEFORE BREAKFAST amLODIPine (NORVASC) 2.5 mg tablet Take 1 tablet by mouth once daily. hydroCHLOROthiazide 25 mg tablet Take 1 tablet by mouth once daily. irbesartan (AVAPRO) 300 mg tablet Take 1 tablet by mouth once daily. MULTIVITAMIN ORAL Take by mouth. Cholecalciferol, Vitamin D3, 1,000 unit cap Take 4 capsules by mouth once daily. calcium carbonate 600 mg-cholecalciferol 200 units (AGUSTO-600 WITH VITAMIN D) 600 mg(1,500mg) -200 unit tab Take 1 tablet by mouth once daily. No current facility-administered medications for this visit. ALLERGIES: ALLERGIES No Known Allergies PAST MEDICAL HISTORY Diagnosis Date Depression Dysmetabolic syndrome Impaired FBS Essential hypertension, benign GERD (gastroesophageal reflux disease) occasional Hepatitis C 2012 Treatment/remission 2011 Osteopenia Vitamin D deficiency 2012 PAST SURGICAL HISTORY Procedure Laterality Date DELIVERY ONLY 1981 , low cervical COLONOSCOPY FLX DX W/COLLJ SPEC WHEN PFRMD 07/17/2006 repeat 2017 COLONOSCOPY SCREENING 04/19/2022 adenomatous polyp, repeat in 5 years [facility] (MISSED AB 1ST TRIMESTER) 1975 ESOPHAGOGASTRODUODENOSCOPY TRANSORAL DIAGNOSTIC 05/12/2019 EGD EYE SURGERY HX VAGINAL HYSTERECTOMY FAMILY HISTORY Problem Relation Age of Onset Hypertension Mother Ischemic Heart Disease Mother RI other (dementia) Mother Hypertension Father 25 years old Kidney Disease Sister Diabetes Maternal Aunt Diabetes Maternal Uncle Breast Cancer Sister Half Sister Diabetes Sister Hypertension Sister Hypertension Brother Social History (more content not included)... [facility] 12-06-2022 History of Present illness Narrative Patient presents with: 6 Month Exam HPI: Patient presents today for office visit for follow up. Over the last couple of months has noticed a tingling/burning sensation on her tongue and in the inside of her bottom lip. Some days sensation is worse but it's always there. Refers to this interfering with her taste buds. Things don't taste quite as they should. No issues with smell. Did not have covid that she is aware of. States the tingling is across both sides of the mouth and tongue. Has been there for two months. No sinus congestion. Also complains of pressure/heaviness in both her eyes for about the same time. States she knows her eyes are open but they feel like they're drooping. In her head she feels foggy. She thinks it started before the mouth issues. Does note occasional issues walking up and down stairs with her vision. Had one fall once. Denies vision changes. No diplopia. Denies slurred speech No headaches No numbness or weakness that is focal. No dizziness. No muscle spasms. She feels her lids are dropping in the mornings. No issues with breathing. GERD: Currently using Omeprazole daily with symptom relief. No issues. Continues on Amlodipine 2.5 mg daily along with HCTZ 25 mg daily and Irbesartan for blood pressure. Monitors BP occ Denies chest pain or shortness of breath No headaches or dizziness No syncope No swelling PSYCH: No longer taking Celexa. Refers to doing pretty well emotionally since coming off Celexa. Some days she's down but nothing severe she says. Has been doing PT for ongoing B/L hip pain. Still with pain in hips but states it's helping some. Is leaving for [place] in a little over a week. I will follow up when she returns. Component Latest Ref Rng & Units 12/01/2022 WBC 3.70 - 11.00 k/uL 6.35 RBC 3.90 - 5.20 m/uL 5.14 Hemoglobin 11.5 - 15.5 g/dL 14.3 Hematocrit 36.0 - 46.0 % 44.2 MCV 80.0 - 100.0 fL 86.0 MCH 26.0 - 34.0 pg 27.8 MCHC 30.5 - 36.0 g/dL 32.4 RDW-CV 11.5 - 15.0 % 13.2 Platelet Count 150 - 400 k/uL 320 MPV 9.0 - 12.7 fL 9.8 Neut% % 61.8 Abs Neut (ANC) 1.45 - 7.50 k/uL 3.92 Lymph% % 26.9 Abs Lymph 1.00 - 4.00 k/uL 1.71 [place]% % 8.8 Abs [place] <0.87 k/uL 0.56 Eosin% % 1.3 Abs Eosin <0.46 k/uL 0.08 Baso% % 0.9 Abs Baso <0.11 k/uL 0.06 Immature Gran % % 0.3 IMMATURE GRANS (ABS) <0.10 k/uL <0.03 NRBC /100 WBC 0.0 Absolute nRBC <0.01 k/uL <0.01 DTYPE Auto Protein, Total 6.3 - 8.0 g/dL 7.6 Albumin 3.9 - 4.9 g/dL 4.2 Calcium 8.5 - 10.2 mg/dL 9.5 Bilirubin, Total 0.2 - 1.3 mg/dL 0.5 Alkaline Phosphatase 34 - 123 U/L 113 AST 13 - 35 U/L 20 ALT 7 - 38 U/L 16 Glucose 74 - 99 mg/dL 116 (H) BUN 7 - 21 mg/dL 9 Creatinine 0.58 - 0.96 mg/dL 0.69 Sodium 136 - 144 mmol/L 132 (L) Potassium 3.7 - 5.1 mmol/L 3.9 Chloride 97 - 105 mmol/L 94 (L) CO2 22 - 30 mmol/L 25 Anion Gap 9 - 18 mmol/L 13 eGFR >=60 mL/min/1.73m 93 Hemoglobin A1C 4.3 - 5.6 % 6.0 (H) Estimated Average Glucose mg/dL 126 MEDICATIONS: Current Outpatient Medications Medication Sig omeprazole (PRILOSEC) 20 mg capsule Take 1 capsule by mouth once daily. TAKE 1 CAPSULE BY MOUTH ONCE DAILY 1/2 HOUR BEFORE BREAKFAST amLODIPine (NORVASC) 2.5 mg tablet Take 1 tablet by mouth once daily. hydroCHLOROthiazide 25 mg tablet Take 1 tablet by mouth once daily. irbesartan (AVAPRO) 300 mg tablet Take 1 tablet by mouth once daily. MULTIVITAMIN ORAL Take by mouth. Cholecalciferol, Vitamin D3, 1,000 unit cap Take 4 capsules by mouth once daily. calcium carbonate 600 mg-cholecalciferol 200 units (AGUSTO-600 WITH VITAMIN D) 600 mg(1,500mg) -200 unit tab Take 1 tablet by mouth once daily. No current facility-administered medications for this visit. ALLERGIES: ALLERGIES No Known Allergies PAST MEDICAL HISTORY Diagnosis Date Depression Dysmetabolic syndrome Impaired FBS Essential hypertension, benign GERD (gastroesophageal reflux disease) occasional Hepatitis C 2012 Treatment/remission 2012 Osteopenia Vitamin D deficiency 2013 PAST SURGICAL HISTORY Procedure Laterality Date DELIVERY ONLY 1982 , low cervical COLONOSCOPY FLX DX W/COLLJ SPEC WHEN PFRMD 07/17/2006 repeat 2017 COLONOSCOPY SCREENING 04/19/2022 adenomatous polyp, repeat in 5 years D&C (MISSED AB 1ST TRIMESTER) 1975 ESOPHAGOGASTRODUODENOSCOPY TRANSORAL DIAGNOSTIC 05/12/2019 EGD EYE SURGERY HX VAGINAL HYSTERECTOMY FAMILY HISTORY Problem Relation Age of Onset Hypertension Mother Ischemic Heart Disease Mother RI other (dementia) Mother Hypertension Father 25 years old Kidney Disease Sister Diabetes Maternal Aunt Diabetes Maternal Uncle Breast Cancer Sister Half Sister Diabetes Sister Hypertension Sister Hypertension Brother Social History Tobacco Use Smoking status: Never Smokeless tobacco: Never Vaping Use Vaping Use: Never used Substance Use Topics Alcohol use: Yes Alcohol/week: 2.0 standard drinks of alcohol Types: 2 Shots of liquor per week Comment: 2 shots vodka daily Drug use: No Reviewed current medications, allergies, past medical history, surgical history, family history and social history today. REVIEW OF SYSTEMS All other reviewed and negative other than HPI. VITALS: BP 138/90 Pulse 87 Ht 157.5 cm (5' 2 ) Wt 96.3 kg (212 lb 6.4 oz) SpO2 96% BMI 38.85 kg/m Last 4 Encounter Wt Readings: Date: Wt: 06/08/2022 97.2 kg (214 lb 3.2 oz) 05/08/2022 98 kg (216 lb) 04/26/2022 98.4 kg (217 lb) 04/19/2022 98.6 kg (217 lb 6 oz) PHYSICAL EXAMINATION: General appearance: Well appearing, alert, in no acute distress, well-hydrated, well nourished. Skin: Skin color, texture, turgor normal, no suspicious rashes or lesions Head: Normocephalic, no masses, lesions, tenderness or abnormalities Eyes: Anicteric sclera. Pupils are equally round and reactive to light. No signs of eom abnormalities. ? Slight ptosis. Nose/Sinuses: Nares normal, septum midline, mucosa normal, no drainage or sinus tenderness Oropharynx: Lips, mucosa, and tongue normal, teeth and gums normal, oropharynx normal Neck: Supple, no adenopathy; thyroid symmetric, normal size, no bruits Lungs: Lungs clear to auscultation. No wheezing, rhonchi, rales Heart: RRR without murmur, gallop, or rubs. No ectopy Abdomen: Normal abdominal exam, Abdomen soft, non-tender. Bowel sounds normal. No masses, organomegaly Extremities: No deformities, edema, skin discoloration, clubbing or cyanosis. Good capillary refill. Musculoskeletal: No joint swelling, deformity, or tenderness Peripheral pulses: Normal Neuro: Gait normal. Reflexes normal and symmetric. Sensation grossly intact., Negative findings: speech normal, mental status intact, Romberg negative, muscle strength normal ASSESSMENT/PLAN: 1. Ptosis of both eyelids - ICD9: 374.30, ICD10: H02.403 (primary diagnosis) - consider neuro and mri if continues. See optho. - Red flags for re-assessment reviewed with patient in detail. - CONSULT TO OPHTHALMOLOGY - ACETYLCHOLINE REC BINDING AB 2. Encounter for immunization - ICD9: V03.89, ICD10: Z23 - INFLUENZA VACCINE, PRSV FREE, AGE 65+ YR, HIGH DOSE, QUADRIVALENT (FLUZONE HIGH-DOSE) 3. Essential hypertension - ICD9: 401.9, ICD10: I10 Fair control. Will recheck. 4. History of hepatitis C - ICD9: V12.09, ICD10: Z86.19 - have rechecked hep and negative. 5. Hyperglycemia - ICD9: 790.29, ICD10: R73.9 - stable. 6. Other osteoporosis without current pathological fracture - ICD9: 733.09, ICD10: M81.8 - consider repeat bone density 7. Vitamin D deficiency - ICD9: 268.9, ICD10: E55.9 - VITAMIN D 25 HYDROXY 8. Obesity, Class II, BMI 35-39.9 - ICD9: 278.00, ICD10: E66.9 - work on diet. 9. Eye fatigue - ICD9: 368.13, ICD10: H53.10 - see optho. As above. - CONSULT TO OPHTHALMOLOGY - ACETYLCHOLINE REC BINDING AB 10. Dysgeusia - ICD9: 781.1, ICD10: R43.2 - as above. Consider neuro eval - CONSULT TO ENT - ACETYLCHOLINE REC BINDING AB 11. 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 Hyponatremia - ICD9: 276.1, ICD10: E87.1 - SODIUM/NA BLD Kala Chang MD documented in this encounter [facility] 11-17-2022 Miscellaneous Notes Pt called and is notified of providers message. Pt voices understanding. Sebastian Saldivar RN done Pt called in and reports she has an appointment on 12/06/22. She was asking if she needed labs done before. Please call Pt once labs are ordered. documented in this encounter [facility] 08-30-2022 Miscellaneous Notes Patient phones requesting refills as follows: Requested Prescriptions Pending Prescriptions Disp Refills omeprazole (PRILOSEC) 20 mg capsule Sig: Take 1 capsule by mouth once daily. TAKE 1 CAPSULE BY MOUTH ONCE DAILY 1/2 HOUR BEFORE BREAKFAST CORDELIA 06/08/22 NOV 12/06/22 Please review and advise. Charles Parry LPN documented in this encounter [facility] 06-08-2022 Note HNO ID: [id number] Author: Kala Chang MD Service: ? Author Type: Physician Type: Progress Notes Filed: 06/08/2022 9:16 AM Note Text: Patient presents with: Follow Up HPI: Patient presents today for office visit for yearly follow up. Pain in left hip into buttocks. Hurts when walking up steps. Ongoing for 3 weeks. No injury or fall. GERD: Was on Nexium 40 mg daily back in 2017. Then started on Omeprazole 20 mg daily then later increased to twice daily. She's unsure why she was switched. She rarely takes her second dose of Omeprazole at night. Can't remember to take it. Symptoms are controlled on the 20 mg daily most days. Denies any issues. HTN: Monitors BP Stable No chest pain or shortness of breath No headaches or dizziness Denies palpitations No syncope No edema Echo done last year for SOB. Workup neg. No other issues. PSYCH: Currently taking Celexa 20 mg. Moods have been good. States she's doesn't think she needs to be on it anymore. Denies any depression or anxiety. States she was only put on it when her and was having some stressors with her job. Would like to start weaning off Celexa. Alk phos is stable. Liver us negative. Her hep c was negative in last year. Having some pain in left lower back/buttock. For several weeks. No radiation. No trauma. No groin pain. No edema. No numbness or weakness. Using ibuprofen. Component Latest Ref Rng AND Units 06/05/2022 WBC 3.70 - 11.00 k/uL 8.27 RBC 3.90 - 5.20 m/uL 5.33 (H) Hemoglobin 11.5 - 15.5 g/dL 15.3 Hematocrit 36.0 - 46.0 % 46.9 (H) MCV 80.0 - 100.0 fL 88.0 MCH 26.0 - 34.0 pg 28.7 MCHC 30.5 - 36.0 g/dL 32.6 RDW-CV 11.5 - 15.0 % 13.2 Platelet Count 150 - 400 k/uL 307 MPV 9.0 - 12.7 fL 9.9 Neut% % 67.2 Abs Neut (ANC) 1.45 - 7.50 k/uL 5.57 Lymph% % 22.9 Abs Lymph 1.00 - 4.00 k/uL 1.89 [place]% % 7.4 Abs [place] <0.87 k/uL 0.61 Eosin% % 1.6 Abs Eosin <0.46 k/uL 0.13 Baso% % 0.5 Abs Baso <0.11 k/uL 0.04 Immature Gran % % 0.4 IMMATURE GRANS (ABS) <0.10 k/uL 0.03 NRBC /100 WBC 0.0 Absolute nRBC <0.01 k/uL <0.01 DTYPE Auto Protein, Total 6.3 - 8.0 g/dL 8.0 Albumin 3.9 - 4.9 g/dL 4.3 Calcium 8.5 - 10.2 mg/dL 9.7 Bilirubin, Total 0.2 - 1.3 mg/dL 0.6 Alkaline Phosphatase 34 - 123 U/L 132 (H) AST 13 - 35 U/L 22 ALT 7 - 38 U/L 22 Glucose 74 - 99 mg/dL 119 (H) BUN 7 - 21 mg/dL 13 Creatinine 0.58 - 0.96 mg/dL 0.72 Sodium 136 - 144 mmol/L 135 (L) Potassium 3.7 - 5.1 mmol/L 3.9 Chloride 97 - 105 mmol/L 96 (L) CO2 22 - 30 mmol/L 26 Anion Gap 9 - 18 mmol/L 13 eGFR >=60 mL/min/1.73mA? 90 Cholesterol, Total <200 mg/dL 236 (H) Triglyceride <150 mg/dL 136 HDL Cholesterol >39 mg/dL 54 Non HDL Cholesterol <130 mg/dL 182 (H) Fasting Time hrs 12 VLDL Cholesterol <30 mg/dL 27 TC:HDL Ratio <5.10 4.37 LDL Cholesterol <100 mg/dL 155 (H) LDL:HDL Ratio <2.54 2.87 (H) Vitamin D 25 Hydroxy 31.0 - 80.0 ng/mL 61.9 US in last year. IMPRESSION: Hepatic steatosis. Cholelithiasis without evidence of cholecystitis. Common bile duct is within normal limits. No hydronephrosis. No splenomegaly. MEDICATIONS: Current Outpatient Medications Medication Sig amLODIPine (NORVASC) 2.5 mg tablet Take 1 tablet by mouth once daily. hydroCHLOROthiazide (HYDRODIURIL, ESIDRIX) 25 mg tablet Take 1 tablet by mouth once daily. irbesartan (AVAPRO) 300 mg tablet Take 1 tablet by mouth once daily. citalopram (CELEXA) 20 mg tablet Take 1 tablet by mouth once daily. benzonatate (TESSALON PERLES) 100 mg capsule Take 1 capsule by mouth three times daily as needed for cough. omeprazole (PRILOSEC) 20 mg capsule Take 1 capsule by mouth twice daily. TAKE 1 CAPSULE BY MOUTH ONCE DAILY 1/2 HOUR BEFORE BREAKFAST MULTIVITAMIN ORAL Take by mouth. Cholecalciferol, Vitamin D3, 1,000 unit cap Take 4 capsules by mouth once daily. calcium carbonate 600 mg-cholecalciferol 200 units (AGUSTO-600 WITH VITAMIN D) 600 mg(1,500mg) -200 unit tab Take 1 tablet by mouth once daily. Current Facility-Administered Medications Medication Dose Route Frequency perflutren lipid microspheres 1.3 mL in NaCl (PF) 0.9% 10 mL injection (DEFINITY) INTRAVENOUS DIRECTED PRN sodium chloride 0.9 % (flush) 10 mL (BD POSIFLUSH) 10 mL INTRAVENOUS DIRECTED PRN ALLERGIES: ALLERGIES No Known Allergies PAST MEDICAL HISTORY Diagnosis Date Depression Dysmetabolic syndrome Impaired FBS Essential hypertension, benign GERD (gastroesophageal reflux disease) occasional Hepatitis C 2012 Treatment/remission 2011 Osteopenia Vitamin D deficiency 2013 PAST SURGICAL HISTORY Procedure Laterality Date DELIVERY ONLY 1981 , low cervical COLONOSCOPY FLX DX W/COLLJ SPEC WHEN PFRMD 07/17/2006 repeat 2017 COLONOSCOPY SCREENING 04/19/2022 adenomatous polyp, repeat in 5 years [facility] (MISSED AB 1ST TRIMESTER) 1975 ESOPHAGOGASTRODUODENOSCOPY TRANSORAL DIAGNOSTIC (more content not included)... [facility] 06-08-2022 Instructions Kala Chang MD - 06/08/2022 9:06 AM EDT Change citalopram to 1/2 tab a day for one week, then 1/2 tab every other day for one week and then stop. Let me know if any issues. documented in this encounter [facility] 06-08-2022 History of Present illness Narrative Patient presents with: Follow Up HPI: Patient presents today for office visit for yearly follow up. Pain in left hip into buttocks. Hurts when walking up steps. Ongoing for 3 weeks. No injury or fall. GERD: Was on Nexium 40 mg daily back in 2017. Then started on Omeprazole 20 mg daily then later increased to twice daily. She's unsure why she was switched. She rarely takes her second dose of Omeprazole at night. Can't remember to take it. Symptoms are controlled on the 20 mg daily most days. Denies any issues. HTN: Monitors BP Stable No chest pain or shortness of breath No headaches or dizziness Denies palpitations No syncope No edema Echo done last year for SOB. Workup neg. No other issues. PSYCH: Currently taking Celexa 20 mg. Moods have been good. States she's doesn't think she needs to be on it anymore. Denies any depression or anxiety. States she was only put on it when her and was having some stressors with her job. Would like to start weaning off Celexa. Alk phos is stable. Liver us negative. Her hep c was negative in last year. Having some pain in left lower back/buttock. For several weeks. No radiation. No trauma. No groin pain. No edema. No numbness or weakness. Using ibuprofen. Component Latest Ref Rng & Units 06/05/2022 WBC 3.70 - 11.00 k/uL 8.27 RBC 3.90 - 5.20 m/uL 5.33 (H) Hemoglobin 11.5 - 15.5 g/dL 15.3 Hematocrit 36.0 - 46.0 % 46.9 (H) MCV 80.0 - 100.0 fL 88.0 MCH 26.0 - 34.0 pg 28.7 MCHC 30.5 - 36.0 g/dL 32.6 RDW-CV 11.5 - 15.0 % 13.2 Platelet Count 150 - 400 k/uL 307 MPV 9.0 - 12.7 fL 9.9 Neut% % 67.2 Abs Neut (ANC) 1.45 - 7.50 k/uL 5.57 Lymph% % 22.9 Abs Lymph 1.00 - 4.00 k/uL 1.89 [place]% % 7.4 Abs [place] <0.87 k/uL 0.61 Eosin% % 1.6 Abs Eosin <0.46 k/uL 0.13 Baso% % 0.5 Abs Baso <0.11 k/uL 0.04 Immature Gran % % 0.4 IMMATURE GRANS (ABS) <0.10 k/uL 0.03 NRBC /100 WBC 0.0 Absolute nRBC <0.01 k/uL <0.01 DTYPE Auto Protein, Total 6.3 - 8.0 g/dL 8.0 Albumin 3.9 - 4.9 g/dL 4.3 Calcium 8.5 - 10.2 mg/dL 9.7 Bilirubin, Total 0.2 - 1.3 mg/dL 0.6 Alkaline Phosphatase 34 - 123 U/L 132 (H) AST 13 - 35 U/L 22 ALT 7 - 38 U/L 22 Glucose 74 - 99 mg/dL 119 (H) BUN 7 - 21 mg/dL 13 Creatinine 0.58 - 0.96 mg/dL 0.72 Sodium 136 - 144 mmol/L 135 (L) Potassium 3.7 - 5.1 mmol/L 3.9 Chloride 97 - 105 mmol/L 96 (L) CO2 22 - 30 mmol/L 26 Anion Gap 9 - 18 mmol/L 13 eGFR >=60 mL/min/1.73m 90 Cholesterol, Total <200 mg/dL 236 (H) Triglyceride <150 mg/dL 136 HDL Cholesterol >39 mg/dL 54 Non HDL Cholesterol <130 mg/dL 182 (H) Fasting Time hrs 12 VLDL Cholesterol <30 mg/dL 27 TC:HDL Ratio <5.10 4.37 LDL Cholesterol <100 mg/dL 155 (H) LDL:HDL Ratio <2.54 2.87 (H) Vitamin D 25 Hydroxy 31.0 - 80.0 ng/mL 61.9 US in last year. IMPRESSION: Hepatic steatosis. Cholelithiasis without evidence of cholecystitis. Common bile duct is within normal limits. No hydronephrosis. No splenomegaly. MEDICATIONS: Current Outpatient Medications Medication Sig amLODIPine (NORVASC) 2.5 mg tablet Take 1 tablet by mouth once daily. hydroCHLOROthiazide (HYDRODIURIL, ESIDRIX) 25 mg tablet Take 1 tablet by mouth once daily. irbesartan (AVAPRO) 300 mg tablet Take 1 tablet by mouth once daily. citalopram (CELEXA) 20 mg tablet Take 1 tablet by mouth once daily. benzonatate (TESSALON PERLES) 100 mg capsule Take 1 capsule by mouth three times daily as needed for cough. omeprazole (PRILOSEC) 20 mg capsule Take 1 capsule by mouth twice daily. TAKE 1 CAPSULE BY MOUTH ONCE DAILY 1/2 HOUR BEFORE BREAKFAST MULTIVITAMIN ORAL Take by mouth. Cholecalciferol, Vitamin D3, 1,000 unit cap Take 4 capsules by mouth once daily. calcium carbonate 600 mg-cholecalciferol 200 units (AGUSTO-600 WITH VITAMIN D) 600 mg(1,500mg) -200 unit tab Take 1 tablet by mouth once daily. Current Facility-Administered Medications Medication Dose Route Frequency perflutren lipid microspheres 1.3 mL in NaCl (PF) 0.9% 10 mL injection (DEFINITY) INTRAVENOUS DIRECTED PRN sodium chloride 0.9 % (flush) 10 mL (BD POSIFLUSH) 10 mL INTRAVENOUS DIRECTED PRN ALLERGIES: ALLERGIES No Known Allergies PAST MEDICAL HISTORY Diagnosis Date Depression Dysmetabolic syndrome Impaired FBS Essential hypertension, benign GERD (gastroesophageal reflux disease) occasional Hepatitis C 2012 Treatment/remission 2011 Osteopenia Vitamin D deficiency 2013 PAST SURGICAL HISTORY Procedure Laterality Date DELIVERY ONLY 1982 , low cervical COLONOSCOPY FLX DX W/COLLJ SPEC WHEN PFRMD 07/17/2006 repeat 2017 COLONOSCOPY SCREENING 04/19/2022 adenomatous polyp, repeat in 5 years D&C (MISSED AB 1ST TRIMESTER) 1975 ESOPHAGOGASTRODUODENOSCOPY TRANSORAL DIAGNOSTIC 05/12/2019 EGD EYE SURGERY HX VAGINAL HYSTERECTOMY FAMILY HISTORY Problem Relation Age of Onset Hypertension Mother Ischemic Heart Disease Mother RI other (dementia) Mother Hypertension Father 25 years old Kidney Disease Sister Diabetes Maternal Aunt Diabetes Maternal Uncle Breast Cancer Sister Half Sister Diabetes Sister Hypertension Sister Hypertension Brother Social History Tobacco Use Smoking status: Never Smokeless tobacco: Never Vaping Use Vaping Use: Never used Substance Use Topics Alcohol use: Yes Alcohol/week: 2.0 standard drinks Types: 2 Shots of liquor per week Comment: 2 shots vodka daily Drug use: No Reviewed current medications, allergies, past medical history, surgical history, family history and social history today. REVIEW OF SYSTEMS All other reviewed and negative other than HPI. HEALTH MAINTENANCE: Reviewed health maintenance issues today and recommended the following in detail. BP CONTROLLED (<130/80) Never done SHINGRIX VACCINE(1 of 2) Never done MAMMOGRAM-has order. ADVANCE DIRECTIVE DISCUSSION - on file. ANNUAL PCP TEAM CHRONIC DISEASE VISIT due on 05/31/2022 VITALS: BP 128/86 Pulse 100 Ht 157.5 cm (5' 2 ) Wt 97.2 kg (214 lb 3.2 oz) SpO2 95% BMI 39.18 kg/m Last 4 Encounter Wt Readings: Date: Wt: 05/08/2022 98 kg (216 lb) 04/26/2022 98.4 kg (217 lb) 04/19/2022 98.6 kg (217 lb 6 oz) 03/07/2022 98.6 kg (217 lb 6.4 oz) PHYSICAL EXAMINATION: General appearance: Well appearing, alert, in no acute distress, well-hydrated, well nourished. Skin: Skin color, texture, turgor normal, no suspicious rashes or lesions Head: Normocephalic, no masses, lesions, tenderness or abnormalities Neck: Supple, no adenopathy; thyroid symmetric, normal size, no bruits BACK: Normal curvature of spine. No spine tenderness. Straight leg test negative. Deep tendon reflexes 2+/4 at patellas. Normal lower extremity strength. Patient stated sciatic like issues are improving. Declines xray and physical therapy Red flags for re-assessment reviewed with patient in detail. Call if symptoms worsen at all or if not better in one to two weeks Lungs: Lungs clear to auscultation. No wheezing, rhonchi, rales Heart: RRR without murmur, gallop, or rubs. No ectopy Abdomen: Normal abdominal exam, Abdomen soft, non-tender. Bowel sounds normal. No masses, organomegaly Extremities: No deformities, edema, skin discoloration, clubbing or cyanosis. Good capillary refill. ASSESSMENT/PLAN: 1. Essential hypertension - ICD9: 401.9, ICD10: I10 (primary diagnosis) - good control - Goal of BP <130/80 - AMLODIPINE 2.5 MG TABLET - HYDROCHLOROTHIAZIDE 25 MG TABLET - IRBESARTAN 300 MG TABLET - OMEPRAZOLE 20 MG CAPSULE,DELAYED RELEASE 2. Dysmetabolic syndrome - ICD9: 277.7, ICD10: E88.81 - cjecl a1c now in six months. - AMLODIPINE 2.5 MG TABLET - HYDROCHLOROTHIAZIDE 25 MG TABLET - OMEPRAZOLE 20 MG CAPSULE,DELAYED RELEASE 3. Major depressive disorder, recurrent, in partial remission (HCC) - ICD9: 296.35, ICD10: F33.41 - will taper off and stop the citalopram. 4. Hyperglycemia - ICD9: 790.29, ICD10: R73.9 - watch carbs and sugars. - HGB A1C - HGB A1C 5. Vitamin D deficiency - ICD9: 268.9, ICD10: E55.9 - stabs 6. Elevated liver enzymes - ICD9: 790.5, ICD10: R74.8 - follow labs. Work on weight reduction. - HEPATIC FUNCTION PNL - GGT BLD 7. History of hepatitis C - ICD9: V12.09, ICD10: Z86.19 - most recent labs were negative. No follow up deemed necessary after tx Kala Chang MD documented in this encounter [facility] 05-16-2022 Miscellaneous Notes Patient phones requesting refills as follows: Requested Prescriptions Pending Prescriptions Disp Refills citalopram (CELEXA) 20 mg tablet 90 tablet 1 Sig: Take 1 tablet by mouth once daily. CORDELIA 05/31/21 NOV no upcoming appt. Pt overdue for follow up appt and labs. Labs pending. Please review and file. MC message sent to pt advising of need for appt.. Please review and advise. Charles Parry LPN documented in this encounter [facility] 05-16-2022 Miscellaneous Notes Patient phones requesting refills as follows: Requested Prescriptions Pending Prescriptions Disp Refills amLODIPine (NORVASC) 2.5 mg tablet 90 tablet 0 Sig: Take 1 tablet by mouth once daily. hydroCHLOROthiazide (HYDRODIURIL, ESIDRIX) 25 mg tablet 90 tablet 0 Sig: Take 1 tablet by mouth once daily. irbesartan (AVAPRO) 300 mg tablet 90 tablet 0 Sig: Take 1 tablet by mouth once daily. CORDELIA 05/31/21 NOV no upcoming appt. Pt overdue for follow up appt and labs. Labs pending. Please review and file. MC message sent to pt advising of need for appt. Please review and advise. Charles Parry LPN documented in this encounter [facility] 05-08-2022 Note HNO ID: [id number] Author: RT Nydia(R) Service: Radiology Author Type: Technologist Type: Progress Notes Filed: 05/08/2022 10:07 AM Note Text: Radiology Service Progress Note PATIENT NAME: Vy Osorio DATE OF SERVICE: May 08, 2022 TIME: 9:59 AM PATIENT IDENTITY VERIFICATION COMPLETED USING TWO (2) IDENTIFIERS: Name and Date of confirmed by patient verbally. FALL SCREENING: Has the patient had 2 falls in the last year or 1 fall with injury or currently using an Ambulatory Assistive Device (Walker, Cane, Wheelchair, Crutches, etc.)? No PATIENT GENDER DATA: Female. status: : No status: NO. PATIENT RELEVANT IMPLANT DATA REVIEWED: Yes RADIOLOGY DEPARTMENT: General X-ray: Exam(s) Completed: Chest X-Ray PERIPHERAL IV DATA: Not applicable SIGNED BY: RT Nydia(R) May 08, 2022 9:59 AM [facility] 05-08-2022 Note HNO ID: [id number] Author: Faby Stewart APRN.DRILLING MACHINE OPERATOR Service: ? Author Type: Nurse Practitioner Type: Progress Notes Filed: 05/08/2022 12:08 PM Note Text: This note was created using BLOVESriter. Subjective Vy Osorio is a 71 year old female. 71 year old female with PMH HTN, GERD, and obesity presents for complaints of illness. Acute onset 2 weeks ago Started with sore throat +head congestion Moved into chest +cough coughing, coughing, and coughing +productive sputum Little fatigue. +nausea Denies hemoptysis. Denies CP Denies fever or chills. Denies tobacco usage. Has used Robitussin for the cough Has used Dayquil. Denies ill contacts States cough is worst symptoms. Endorses it keeps her up at night. The history is provided by the patient. No calibrator barometers was used. Sinus Problem This is a new problem. The current episode started 1 to 4 weeks ago. The problem occurs constantly. The problem has been gradually worsening. Associated symptoms include chills, congestion, coughing, fatigue, headaches and a sore throat. Pertinent negatives include no abdominal pain, anorexia, arthralgias, change in bowel habit, chest pain, diaphoresis, fever, joint swelling, myalgias, nausea, neck pain, numbness, rash, swollen glands, urinary symptoms, vertigo, visual change, vomiting or weakness. Nothing aggravates the symptoms. Treatments tried: OTC medicines. The treatment provided no relief. PAST MEDICAL HISTORY Diagnosis Date Depression Dysmetabolic syndrome Impaired FBS Essential hypertension, benign GERD (gastroesophageal reflux disease) occasional Hepatitis C 2012 Treatment/remission 2012 Osteopenia Vitamin D deficiency 2013 PAST SURGICAL HISTORY Procedure Laterality Date DELIVERY ONLY 1981 , low cervical COLONOSCOPY FLX DX W/COLLJ SPEC WHEN PFRMD 07/17/2006 repeat 2017 COLONOSCOPY SCREENING 04/19/2022 adenomatous polyp, repeat in 5 years DANDC (MISSED AB 1ST TRIMESTER) 1975 ESOPHAGOGASTRODUODENOSCOPY TRANSORAL DIAGNOSTIC 05/12/2019 EGD EYE SURGERY HX VAGINAL HYSTERECTOMY ALLERGIES Patient has no known allergies. MEDICATIONS citalopram (CELEXA) 20 mg tabletTake 1 tablet by mouth once daily.Disp: 90 tabletRfl: 1 amLODIPine (NORVASC) 2.5 mg tabletTake 1 tablet by mouth once daily.Disp: 90 tabletRfl: 0 hydroCHLOROthiazide (HYDRODIURIL, ESIDRIX) 25 mg tabletTake 1 tablet by mouth once daily.Disp: 90 tabletRfl: 0 irbesartan (AVAPRO) 300 mg tabletTake 1 tablet by mouth once daily.Disp: 90 tabletRfl: 0 omeprazole (PRILOSEC) 20 mg capsuleTake 1 capsule by mouth twice daily. TAKE 1 CAPSULE BY MOUTH ONCE DAILY 1/2 HOUR BEFORE BREAKFASTDisp: 60 capsuleRfl: 5 MULTIVITAMIN ORALTake by mouth.Disp: Rfl: Cholecalciferol, Vitamin D3, 1,000 unit capTake 4 capsules by mouth once daily.Disp: Rfl: calcium carbonate 600 mg-cholecalciferol 200 units (AGUSTO-600 WITH VITAMIN D) 600 mg(1,500mg) -200 unit tabTake 1 tablet by mouth once daily.Disp: Rfl: 0 doxycycline monohydrate 100 mg tabletTake 1 tablet by mouth twice daily for 7 days.Disp: 14 tabletRfl: 0 benzonatate (TESSALON PERLES) 100 mg capsuleTake 1 capsule by mouth three times daily as needed for cough.Disp: 18 capsuleRfl: 0 FAMILY HISTORY Problem Relation Age of Onset Hypertension Mother Ischemic Heart Disease Mother RI other (dementia) Mother Hypertension Father 25 years old Kidney Disease Sister Diabetes Maternal Aunt Diabetes Maternal Uncle Breast Cancer Sister Half Sister Diabetes Sister Hypertension Sister Hypertension Brother Social History Tobacco Use Smoking status: Never Smokeless tobacco: Never Vaping Use Vaping Use: Never used Substance Use Topics Alcohol use: Yes Alcohol/week: 2.0 standard drinks Types: 2 Shots of liquor per week Comment: 2 shots vodka daily Drug use: No Review of Systems Constitutional: Positive for chills and fatigue. Negative for diaphoresis and fever. HENT: Positive for congestion, ear pain, postnasal drip, sinus pressure, sinus pain and sore throat. Negative for ear discharge. Eyes: Negative for pain, discharge, redness and itching. Respiratory: Positive for cough. Negative for apnea, choking and chest tightness. Cardiovascular: Negative for chest pain. Gastrointestinal: Negative for abdominal pain, anorexia, change in bowel habit, nausea and vomiting. Musculoskeletal: Negative for arthralgias, joint swelling, myalgias and neck pain. Skin: Negative for color change, pallor and rash. Allergic/Immunologic: Negative for environmental allergies, food allergies and immunocompromised state. Neurological: Positive for headaches. Negative for dizziness, vertigo, facial asymmetry, weakness and numbness. Hematological: Negative for adenopathy. Does not bruise/bleed easily. Psychiatric/Behavioral: Negative for agitation and behavioral problems. Objective BP 124/82 (more content not included)... [facility] 04-26-2022 Note HNO ID: [id number] Author: Sebastian Meyers PA-C Service: ? Author Type: Physician Sales Demonstrator Type: Progress Notes Filed: 05/01/2022 10:32 PM Note Text: FOLLOW UP VISIT - ENDOSCOPY NAME: Vy Ford [facility] NO.: [id number] DATE OF SERVICE: 04/26/2022 : 1950 REFERRING PHYSICIAN: Kala Chang MD Vy is a patient I am following with Dr. Ryder for screening colonoscopy. Dr. Ryder performed lower endoscopy on 04/19/22. The patient was found to have two small polyps in the right side of the colon which were removed. Pathology demonstrated: FINAL DIAGNOSIS A. Cecal polyp, biopsy: - Sessile serrated polyp. B. Right colon polyp, biopsy: - Tubular adenoma. JEL 04/21/2022 The patient notes no complaints since the procedure. VITALS: Blood pressure 124/80, pulse 98, temperature 37.2 ?C (99 ?F), height 157.5 cm (5' 2 ), weight 98.4 kg (217 lb), SpO2 93 %. General: patient is alert, cooperative, pleasant and in no acute distress On examination, the abdomen is benign. Assessment IMPRESSION: s/p colonoscopy with polypectomy PLAN: The operative findings and pathology report were reviewed with the patient, and the patient has had the opportunity to ask questions and have questions answered. If the patient notes any problems or changes in bowel function, the patient should contact me immediately. Otherwise I recommend follow up endoscopy in 5 years. HM updated and recall letter generated. Patient verbalized understanding of all above and agreed with the plan Diagnoses: (D36.9) Tubular adenoma (primary encounter diagnosis) (K63.5) Serrated polyp of colon I spent a total of 23 minutes on the date of the service which included preparing to see the patient, [id number] patient care, completing clinical documentation, obtaining and/or reviewing separately obtained history, counseling and educating the patient/family/caregiver, independently interpreting results (not separately reported), and communicating results to the patient/family/caregiver. Sebastian Meyers PA-C [facility] 04-26-2022 Instructions Sebastian Meyers PA-C - 04/26/2022 10:05 AM EST The following instructions are important for you related to your office visit today with the [facility] Sur[facility]. INSTRUCTIONS FOLLOWING A POLYP FOUND AT COLONOSCOPY You were found to have adenomatous colon polyps. I recommend you undergo repeat endoscopy in 5 years. If you note bleeding, change in bowel habits, or other suspicious colon related symptoms before that time, those symptoms should be evaluated as necessary. If you have any difficulties or concerns, you should contact our office immediately. If you note any additional difficulties, questions, or concerns, you should contact our office immediately @ [phone] and ask to be transferred to the General Surgery department. documented in this encounter [facility] 04-26-2022 History of Present illness Narrative FOLLOW UP VISIT - ENDOSCOPY NAME: Vy Ford [facility] NO.: [id number] DATE OF SERVICE: 04/26/2022 : 1950 REFERRING PHYSICIAN: Kala Chang MD Vy is a patient I am following with Dr. Ryder for screening colonoscopy. Dr. Ryder performed lower endoscopy on 04/19/22. The patient was found to have two small polyps in the right side of the colon which were removed. Pathology demonstrated: FINAL DIAGNOSIS A. Cecal polyp, biopsy: - Sessile serrated polyp. B. Right colon polyp, biopsy: - Tubular adenoma. JEL 04/21/2022 The patient notes no complaints since the procedure. VITALS: Blood pressure 124/80, pulse 98, temperature 37.2 C (99 F), height 157.5 cm (5' 2 ), weight 98.4 kg (217 lb), SpO2 93 %. General: patient is alert, cooperative, pleasant and in no acute distress On examination, the abdomen is benign. Assessment IMPRESSION: s/p colonoscopy with polypectomy PLAN: The operative findings and pathology report were reviewed with the patient, and the patient has had the opportunity to ask questions and have questions answered. If the patient notes any problems or changes in bowel function, the patient should contact me immediately. Otherwise I recommend follow up endoscopy in 5 years. HM updated and recall letter generated. Patient verbalized understanding of all above and agreed with the plan Diagnoses: (D36.9) Tubular adenoma (primary encounter diagnosis) (K63.5) Serrated polyp of colon I spent a total of 23 minutes on the date of the service which included preparing to see the patient, [id number] patient care, completing clinical documentation, obtaining and/or reviewing separately obtained history, counseling and educating the patient/family/caregiver, independently interpreting results (not separately reported), and communicating results to the patient/family/caregiver. Sebastian Meyers PA-C documented in this encounter [facility] 04-19-2022 Note HNO ID: [id number] Author: Meeta Fuchs RN Service: ? Author Type: Registered Nurse Type: Nursing Progress Note Filed: 04/19/2022 9:28 AM Note Text: Pulse pre procedure 101, noted in office visit with Dr Ryder 03/07 pulse was 102. [facility] 04-19-2022 Nurse Note Arrived in phase II via cart. Left lateral position. Sedated, but responds to verbal stimuli. Color normal; skin warm and dry. Respirations wnl and unlabored. Abdomen soft and with + bowel sounds in quads X 4. Patient resting comfortably. Family at bedside. Susan Delgadillo RN Pulse pre procedure 101, noted in office visit with Dr Ryder 03/07 pulse was 102. documented in this encounter [facility] 04-19-2022 History and physical note UPDATED PROCEDURAL SEDATION HISTORY AND PHYSICAL EXAMINATION SERVICE DATE: 04/19/2022 SERVICE TIME: 9:27 PHYSICAL EXAM MUST BE COMPLETED ON ADMISSION PROCEDURE: colonoscopy, possible biopsies Procedure Indications: history of colon polyps The History and Physical (completed in the past 30 days) has been reviewed and the patient has been examined. The contents accurately reflect the patient's condition with the following additions or revisions since the H&P was completed. ASA Class: ASA Class:: Patient with severe systemic disease Examination indicates no changes. AIRWAY: Airway Visualization of Uvula: Yes Mouth opening greater than 2 fingerbreadths: Yes Neck Full Range of Motion: Yes LUNGS: Lungs clear to auscultation CARDIAC: Regular rhythm,Regular rate Provisional Diagnosis/Treatment Plan: colonoscopy, possible biopsies SEDATION GOAL: Moderate This H&P can be found in the Electronic Medical Record. SIGNATURE: Becky Ryder MD PATIENT NAME: Vy Osorio DATE: April 19, 2022 TIME: 9:27 AM Source Note - Becky Ryder MD - 04/19/2022 9:30 AM EST HISTORY AND PHYSICAL Vy Osorio 1950 REFERRING PHYSICIAN: Kala Chang MD CHIEF COMPLAINT: Consult (Colon screening) HPI: The patient is a 71 year old female referred for endoscopy. Vy notes no blood in her stools. She notes no abdominal pain. She notes no changes in bowel habits. She has a half sister who had a precancerous polyp found by endoscopy. There is no colon cancer known in her family. She last had a colonoscopy in 2006. She notes no problems with anesthesia. PAST MEDICAL HISTORY Diagnosis Date Depression Dysmetabolic syndrome Impaired FBS Essential hypertension, benign GERD (gastroesophageal reflux disease) occasional Hepatitis C 2012 Treatment/remission 2012 Osteopenia Vitamin D deficiency 2013 PAST SURGICAL HISTORY Procedure Laterality Date DELIVERY ONLY 1981 , low cervical COLONOSCOPY FLX DX W/COLLJ SPEC WHEN PFRMD 07/17/2006 repeat 2017 D&C (MISSED AB 1ST TRIMESTER) 1976 ESOPHAGOGASTRODUODENOSCOPY TRANSORAL DIAGNOSTIC 05/12/2019 EGD Current Outpatient Medications Medication Sig amLODIPine (NORVASC) 2.5 mg tablet Take 1 tablet by mouth once daily. hydroCHLOROthiazide (HYDRODIURIL, ESIDRIX) 25 mg tablet Take 1 tablet by mouth once daily. irbesartan (AVAPRO) 300 mg tablet Take 1 tablet by mouth once daily. omeprazole (PRILOSEC) 20 mg capsule Take 1 capsule by mouth twice daily. TAKE 1 CAPSULE BY MOUTH ONCE DAILY 1/2 HOUR BEFORE BREAKFAST MULTIVITAMIN ORAL Take by mouth. citalopram (CELEXA) 20 mg tablet Take 1 tablet by mouth once daily. Cholecalciferol, Vitamin D3, 1,000 unit cap Take 4 capsules by mouth once daily. calcium carbonate 600 mg-cholecalciferol 200 units (AGUSTO-600 WITH VITAMIN D) 600 mg(1,500mg) -200 unit tab Take 1 tablet by mouth once daily. peg 3350-Electrolytes (GOLYTELY) 236-22.74-6.74 -5.86 gram suspension Take 4,000 mL by mouth one time only for 1 dose. Refer to printed prep instructions from your provider. ALLERGIES: Patient has no known allergies. PERSONAL HISTORY: Social History Tobacco Use Smoking status: Never Smokeless tobacco: Never Vaping Use Vaping Use: Never used Substance Use Topics Alcohol use: Yes Alcohol/week: 5.0 - 7.5 standard drinks Types: 2 - 3 Glasses of Wine (5oz) per week Comment: quit drinking 2011 with Hep C Dx, 2-3 glasses/d of wine before. Drug use: No FAMILY HISTORY Problem Relation Age of Onset Hypertension Mother Ischemic Heart Disease Mother RI other (dementia) Mother Hypertension Father 25 years old Kidney Disease Sister Diabetes Maternal Aunt Diabetes Maternal Uncle Breast Cancer Sister Half Sister Diabetes Sister Hypertension Sister Hypertension Brother The review of systems data was entered by the nurse and reviewed by tn Nursing Notes: Marline Dennis RN 03/07/2022 8:17 AM Signed REVIEW OF SYSTEMS: General: The patient denies fatigue, denies weight loss, denies weight gain, denies feeling hot, and denies feelings of cold. Eyes: The patient denies glaucoma, NOTES eye injury/surgery, wears glasses or contacts. Ear/Nose/Throat: The patient denies allergies, denies hayfever, denies ear infections, and denies bloody noses. Cardiovascular: The patient denies chest pain, denies heart disease, NOTES high blood pressure,denies cardiac stent, denies prior heart attack, denies irregular heart beat, denies high cholesterol, denies poor circulation, denies heart failure, other cardiac issues, denies claudication, denies cold feet, denies peripheral arterial stent. Respiratory: The patient denies tuberculosis, denies pneumonia, denies frequent cough, denies pulmonary embolism, denies shortness of breath, and denies coughing up blood. Gastrointestinal: The patient denies difficulty swallowing, NOTES acid reflux, denies ulcers, denies vomiting, denies jaundice/hepatitis, NOTES gallbladder problems, denies black or tarry stools, denies hemorrhoids, denies bleeding from rectum, denies diverticulitis, denies constipation, denies diarrhea, denies loss of stool control, and denies hernias. Kidney/Bladder: The patient denies kidney stones, denies urine infections, and denies bloody urine. Skin: The patient denies a history of skin cancer, denies bleeding/changing moles, and denies a history of skin rash. Neurologic: The patient denies a history of epilepsy/convulsions, denies headaches, denies head/spinal injuries, and denies stroke/TIA. Psychiatric: The patient denies psychiatric medications, denies depression, and denies voices, denies substance abuse. Endocrine: The patient denies thyroid disorders, denies diabetes, and denies hormonal problems. Hematologic: The patient denies a history of bruising, denies bleeding, and denies anemia, denies blood clots. Infections: The patient denies a history of measles and mumps, denies rheumatic fever, and denies sexually transmitted diseases. Musculoskeletal: The patient denies back pain/injury, denies back problems, denies sciatica, denies knee/foot trouble, denies arthritis, or denies gout. When was patient's last Mammogram screening? 2021 Last Colonoscopy: 2006 Marline Dennis RN PHYSICAL EXAMINATION: General: The patient is 71 year old female, well nourished, well hydrated in no acute distress. The patient is oriented to time, place, and person. VITALS: Blood pressure 124/86, pulse 102, temperature 37.1 C (98.8 F), height 157.5 cm (5' 2 ), weight 98.6 kg (217 lb 6.4 oz), SpO2 92 %. Body mass index is 39.76 kg/m . Head: Normal cephalic, atraumatic Eyes: pupils are equally round, sclera are clear/anicteric Neck is supple with no tracheal deviation Respiratory: Normal respiratory excursion and pattern. Abdominal exam: benign Extremities: no clubbing, cyanosis or edema. Neuro: non focal Psych: normal mood IMPRESSION: screening for colon cancer PLAN: I have discussed the above with the patient. I have offered colonoscopy , possible biopsies I have explained the procedure to the patient. I have counseled the patient as to the risks of the procedure, including but not limited to: infection, bleeding, injury to any intrabdominal organs such as liver/spleen, perforation of the GI tract, inability to complete the procedure, complications of anesthesia, etc. - the patient understands. The patient wishes to proceed. I have answered all questions to the patient s satisfaction and the patient has no further questions. HISTORY AND PHYSICAL Vy Osorio 1950 REFERRING PHYSICIAN: Kala Chang MD CHIEF COMPLAINT: Consult (Colon screening) HPI: The patient is a 71 year old female referred for endoscopy. Vy notes no blood in her stools. She notes no abdominal pain. She notes no changes in bowel habits. She has a half sister who had a precancerous polyp found by endoscopy. There is no colon cancer known in her family. She last had a colonoscopy in 2006. She notes no problems with anesthesia. PAST MEDICAL HISTORY Diagnosis Date Depression Dysmetabolic syndrome Impaired FBS Essential hypertension, benign GERD (gastroesophageal reflux disease) occasional Hepatitis C 2012 Treatment/remission 2012 Osteopenia Vitamin D deficiency 2013 PAST SURGICAL HISTORY Procedure Laterality Date DELIVERY ONLY 1982 , low cervical COLONOSCOPY FLX DX W/COLLJ SPEC WHEN PFRMD 07/17/2006 repeat 2017 D&C (MISSED AB 1ST TRIMESTER) 1975 ESOPHAGOGASTRODUODENOSCOPY TRANSORAL DIAGNOSTIC 05/12/2019 EGD Current Outpatient Medications Medication Sig amLODIPine (NORVASC) 2.5 mg tablet Take 1 tablet by mouth once daily. hydroCHLOROthiazide (HYDRODIURIL, ESIDRIX) 25 mg tablet Take 1 tablet by mouth once daily. irbesartan (AVAPRO) 300 mg tablet Take 1 tablet by mouth once daily. omeprazole (PRILOSEC) 20 mg capsule Take 1 capsule by mouth twice daily. TAKE 1 CAPSULE BY MOUTH ONCE DAILY 1/2 HOUR BEFORE BREAKFAST MULTIVITAMIN ORAL Take by mouth. citalopram (CELEXA) 20 mg tablet Take 1 tablet by mouth once daily. Cholecalciferol, Vitamin D3, 1,000 unit cap Take 4 capsules by mouth once daily. calcium carbonate 600 mg-cholecalciferol 200 units (AGUSTO-600 WITH VITAMIN D) 600 mg(1,500mg) -200 unit tab Take 1 tablet by mouth once daily. peg 3350-Electrolytes (GOLYTELY) 236-22.74-6.74 -5.86 gram suspension Take 4,000 mL by mouth one time only for 1 dose. Refer to printed prep instructions from your provider. ALLERGIES: Patient has no known allergies. PERSONAL HISTORY: Social History Tobacco Use Smoking status: Never Smokeless tobacco: Never Vaping Use Vaping Use: Never used Substance Use Topics Alcohol use: Yes Alcohol/week: 5.0 - 7.5 standard drinks Types: 2 - 3 Glasses of Wine (5oz) per week Comment: quit drinking 2011 with Hep C Dx, 2-3 glasses/d of wine before. Drug use: No FAMILY HISTORY Problem Relation Age of Onset Hypertension Mother Ischemic Heart Disease Mother RI other (dementia) Mother Hypertension Father 25 years old Kidney Disease Sister Diabetes Maternal Aunt Diabetes Maternal Uncle Breast Cancer Sister Half Sister Diabetes Sister Hypertension Sister Hypertension Brother The review of systems data was entered by the nurse and reviewed by tn Nursing Notes: Marline Dennis RN 03/07/2022 8:17 AM Signed REVIEW OF SYSTEMS: General: The patient denies fatigue, denies weight loss, denies weight gain, denies feeling hot, and denies feelings of cold. Eyes: The patient denies glaucoma, NOTES eye injury/surgery, wears glasses or contacts. Ear/Nose/Throat: The patient denies allergies, denies hayfever, denies ear infections, and denies bloody noses. Cardiovascular: The patient denies chest pain, denies heart disease, NOTES high blood pressure,denies cardiac stent, denies prior heart attack, denies irregular heart beat, denies high cholesterol, denies poor circulation, denies heart failure, other cardiac issues, denies claudication, denies cold feet, denies peripheral arterial stent. Respiratory: The patient denies tuberculosis, denies pneumonia, denies frequent cough, denies pulmonary embolism, denies shortness of breath, and denies coughing up blood. Gastrointestinal: The patient denies difficulty swallowing, NOTES acid reflux, denies ulcers, denies vomiting, denies jaundice/hepatitis, NOTES gallbladder problems, denies black or tarry stools, denies hemorrhoids, denies bleeding from rectum, denies diverticulitis, denies constipation, denies diarrhea, denies loss of stool control, and denies hernias. Kidney/Bladder: The patient denies kidney stones, denies urine infections, and denies bloody urine. Skin: The patient denies a history of skin cancer, denies bleeding/changing moles, and denies a history of skin rash. Neurologic: The patient denies a history of epilepsy/convulsions, denies headaches, denies head/spinal injuries, and denies stroke/TIA. Psychiatric: The patient denies psychiatric medications, denies depression, and denies voices, denies substance abuse. Endocrine: The patient denies thyroid disorders, denies diabetes, and denies hormonal problems. Hematologic: The patient denies a history of bruising, denies bleeding, and denies anemia, denies blood clots. Infections: The patient denies a history of measles and mumps, denies rheumatic fever, and denies sexually transmitted diseases. Musculoskeletal: The patient denies back pain/injury, denies back problems, denies sciatica, denies knee/foot trouble, denies arthritis, or denies gout. When was patient's last Mammogram screening? 2021 Last Colonoscopy: 2006 Marline Dennis RN PHYSICAL EXAMINATION: General: The patient is 71 year old female, well nourished, well hydrated in no acute distress. The patient is oriented to time, place, and person. VITALS: Blood pressure 124/86, pulse 102, temperature 37.1 C (98.8 F), height 157.5 cm (5' 2 ), weight 98.6 kg (217 lb 6.4 oz), SpO2 92 %. Body mass index is 39.76 kg/m . Head: Normal cephalic, atraumatic Eyes: pupils are equally round, sclera are clear/anicteric Neck is supple with no tracheal deviation Respiratory: Normal respiratory excursion and pattern. Abdominal exam: benign Extremities: no clubbing, cyanosis or edema. Neuro: non focal Psych: normal mood IMPRESSION: screening for colon cancer PLAN: I have discussed the above with the patient. I have offered colonoscopy , possible biopsies I have explained the procedure to the patient. I have counseled the patient as to the risks of the procedure, including but not limited to: infection, bleeding, injury to any intrabdominal organs such as liver/spleen, perforation of the GI tract, inability to complete the procedure, complications of anesthesia, etc. - the patient understands. The patient wishes to proceed. I have answered all questions to the patient s satisfaction and the patient has no further questions. documented in this encounter [facility] 03-15-2022 Miscellaneous Notes Patient phones requesting refills as follows: Requested Prescriptions Pending Prescriptions Disp Refills citalopram (CELEXA) 20 mg tablet 90 tablet 1 Sig: Take 1 tablet by mouth once daily. CORDELIA 05/31/21 NOV no upcoming appt Please review and advise. Charles Parry LPN documented in this encounter [facility] 03-07-2022 History of Present illness Narrative HISTORY AND PHYSICAL Vy Ford Devon 1950 REFERRING PHYSICIAN: Kala Chang MD CHIEF COMPLAINT: Consult (Colon screening) HPI: The patient is a 71 year old female referred for endoscopy. Vy notes no blood in her stools. She notes no abdominal pain. She notes no changes in bowel habits. She has a half sister who had a precancerous polyp found by endoscopy. There is no colon cancer known in her family. She last had a colonoscopy in 2006. She notes no problems with anesthesia. PAST MEDICAL HISTORY Diagnosis Date Depression Dysmetabolic syndrome Impaired FBS Essential hypertension, benign GERD (gastroesophageal reflux disease) occasional Hepatitis C 2012 Treatment/remission 2012 Osteopenia Vitamin D deficiency 2013 PAST SURGICAL HISTORY Procedure Laterality Date DELIVERY ONLY 1982 , low cervical COLONOSCOPY FLX DX W/COLLJ SPEC WHEN PFRMD 07/17/2006 repeat 2017 D&C (MISSED AB 1ST TRIMESTER) 1976 ESOPHAGOGASTRODUODENOSCOPY TRANSORAL DIAGNOSTIC 05/12/2019 EGD Current Outpatient Medications Medication Sig amLODIPine (NORVASC) 2.5 mg tablet Take 1 tablet by mouth once daily. hydroCHLOROthiazide (HYDRODIURIL, ESIDRIX) 25 mg tablet Take 1 tablet by mouth once daily. irbesartan (AVAPRO) 300 mg tablet Take 1 tablet by mouth once daily. omeprazole (PRILOSEC) 20 mg capsule Take 1 capsule by mouth twice daily. TAKE 1 CAPSULE BY MOUTH ONCE DAILY 1/2 HOUR BEFORE BREAKFAST MULTIVITAMIN ORAL Take by mouth. citalopram (CELEXA) 20 mg tablet Take 1 tablet by mouth once daily. Cholecalciferol, Vitamin D3, 1,000 unit cap Take 4 capsules by mouth once daily. calcium carbonate 600 mg-cholecalciferol 200 units (AGUSTO-600 WITH VITAMIN D) 600 mg(1,500mg) -200 unit tab Take 1 tablet by mouth once daily. peg 3350-Electrolytes (GOLYTELY) 236-22.74-6.74 -5.86 gram suspension Take 4,000 mL by mouth one time only for 1 dose. Refer to printed prep instructions from your provider. ALLERGIES: Patient has no known allergies. PERSONAL HISTORY: Social History Tobacco Use Smoking status: Never Smokeless tobacco: Never Vaping Use Vaping Use: Never used Substance Use Topics Alcohol use: Yes Alcohol/week: 5.0 - 7.5 standard drinks Types: 2 - 3 Glasses of Wine (5oz) per week Comment: quit drinking 2011 with Hep C Dx, 2-3 glasses/d of wine before. Drug use: No FAMILY HISTORY Problem Relation Age of Onset Hypertension Mother Ischemic Heart Disease Mother RI other (dementia) Mother Hypertension Father 25 years old Kidney Disease Sister Diabetes Maternal Aunt Diabetes Maternal Uncle Breast Cancer Sister Half Sister Diabetes Sister Hypertension Sister Hypertension Brother The review of systems data was entered by the nurse and reviewed by tn Nursing Notes: Marline Dennis RN 03/07/2022 8:17 AM Signed REVIEW OF SYSTEMS: General: The patient denies fatigue, denies weight loss, denies weight gain, denies feeling hot, and denies feelings of cold. Eyes: The patient denies glaucoma, NOTES eye injury/surgery, wears glasses or contacts. Ear/Nose/Throat: The patient denies allergies, denies hayfever, denies ear infections, and denies bloody noses. Cardiovascular: The patient denies chest pain, denies heart disease, NOTES high blood pressure,denies cardiac stent, denies prior heart attack, denies irregular heart beat, denies high cholesterol, denies poor circulation, denies heart failure, other cardiac issues, denies claudication, denies cold feet, denies peripheral arterial stent. Respiratory: The patient denies tuberculosis, denies pneumonia, denies frequent cough, denies pulmonary embolism, denies shortness of breath, and denies coughing up blood. Gastrointestinal: The patient denies difficulty swallowing, NOTES acid reflux, denies ulcers, denies vomiting, denies jaundice/hepatitis, NOTES gallbladder problems, denies black or tarry stools, denies hemorrhoids, denies bleeding from rectum, denies diverticulitis, denies constipation, denies diarrhea, denies loss of stool control, and denies hernias. Kidney/Bladder: The patient denies kidney stones, denies urine infections, and denies bloody urine. Skin: The patient denies a history of skin cancer, denies bleeding/changing moles, and denies a history of skin rash. Neurologic: The patient denies a history of epilepsy/convulsions, denies headaches, denies head/spinal injuries, and denies stroke/TIA. Psychiatric: The patient denies psychiatric medications, denies depression, and denies voices, denies substance abuse. Endocrine: The patient denies thyroid disorders, denies diabetes, and denies hormonal problems. Hematologic: The patient denies a history of bruising, denies bleeding, and denies anemia, denies blood clots. Infections: The patient denies a history of measles and mumps, denies rheumatic fever, and denies sexually transmitted diseases. Musculoskeletal: The patient denies back pain/injury, denies back problems, denies sciatica, denies knee/foot trouble, denies arthritis, or denies gout. When was patient's last Mammogram screening? 2021 Last Colonoscopy: 2006 Marline Dennis RN PHYSICAL EXAMINATION: General: The patient is 71 year old female, well nourished, well hydrated in no acute distress. The patient is oriented to time, place, and person. VITALS: Blood pressure 124/86, pulse 102, temperature 37.1 C (98.8 F), height 157.5 cm (5' 2 ), weight 98.6 kg (217 lb 6.4 oz), SpO2 92 %. Body mass index is 39.76 kg/m . Head: Normal cephalic, atraumatic Eyes: pupils are equally round, sclera are clear/anicteric Neck is supple with no tracheal deviation Respiratory: Normal respiratory excursion and pattern. Abdominal exam: benign Extremities: no clubbing, cyanosis or edema. Neuro: non focal Psych: normal mood Assessment IMPRESSION: screening for colon cancer PLAN: I have discussed the above with the patient. I have offered colonoscopy , possible biopsies I have explained the procedure to the patient. I have counseled the patient as to the risks of the procedure, including but not limited to: infection, bleeding, injury to any intrabdominal organs such as liver/spleen, perforation of the GI tract, inability to complete the procedure, complications of anesthesia, etc. - the patient understands. The patient was offered a surgery/procedure at a [facility] facility. The provider and patient have discussed in detail the risk of exposure to and/or potential harm posed by the COVID-19 virus with having a surgery/procedure at this time versus the risk of delaying the surgery/procedure. It is not possible to know either the risk of delaying the surgery or procedure or chance of getting an infection with perfect accuracy, but a joint decision was made between the patient and the provider to proceed at this time with the scheduled surgery/procedure. The patient wishes to proceed. I have answered all questions to the patient s satisfaction and the patient has no further questions. I have confirmed and edited as necessary, the PFSH and ROS obtained by others. Consultation requested by Dr. Kala Chang for an opinion regarding patient's screening for colon cancer. My final recommendations will be communicated back to the requesting physician by way of shared Medical record or letter to requesting physician via US mail. Diagnoses: (Z12.11) Screening for colon cancer Return to Clinic: The patient will be scheduled for colonoscopy at [facility]. I have reviewed colon cleansing with the patient and went over her medication list, also for day of procedure. Medical Decision Making: Risk: Low: Low risk from testing/treatment Medical Decision Making Level: 2 - Straightforward Becky Ryder MD documented in this encounter [facility] 03-07-2022 Instructions Becky Ryder MD - 03/07/2022 8:26 AM EST Images from the original note were not included. Bowel Preparation Instructions for: Golytely, Nulytely, Trilyte or Colyte (polyethylene glycol 3350 and electrolytes) IF YOU DO NOT FOLLOW THESE DIRECTIONS, YOUR COLONOSCOPY WILL BE CANCELLED. Vanessa Instructions: Your bowel must be empty so that your doctor can clearly view your colon. Follow all of the instructions in this handout EXACTLY as they are written. Do NOT eat any solid food the ENTIRE day before your colonoscopy. Drink only clear liquids. Buy your bowel preparation at least 5 days before your colonoscopy. TRANSPORTATION on the Day of Your Exam A responsible person MUST be present with you at Check In prior to your colonoscopy and REMAIN in the endoscopy area until you are discharged. You are NOT ALLOWED to drive, take a taxi or bus, or leave the Endoscopy Center ALONE. If you do not have a responsible waste collection driver (family member or friend) with you to take you home, your exam cannot be done with sedation and will be cancelled. Please bring a list of all of your current medications, including any Over-the Counter medications with you. Medications If you take insulin, diabetic medications or blood thinners such as Coumadin (warfarin), Plavix (clopidogrel), Ticlid (ticlopidine hydrochloride), Agrylin (anagrelide), Xarelto (Rivaroxaban), Pradaxa (Dabigatran), Eliquis (Apixaban), and Effient (Prasugrel). You MUST call the doctors who orders those medicines for instructions on altering the dosage before your colonoscopy. All other medications should be taken the day of the exam with a sip of water including ASPIRIN. Five (5) Days Before Your Colonoscopy Do NOT take medicines that stop diarrhea - such as Imodium, Kaopectate, or Pepto Bismol. Do NOT take fiber supplements - such as Metamucil, Citrucel, or Perdiem. Do NOT take products that contain iron - such as multi-vitamins (the label lists what is in the products). Do NOT take Vitamin E. Buy the prescription bowel preparation solution at your local pharmacy or [facility]. 02/2019 Bowel Preparation Instructions for: Golytely, Nulytely, Trilyte or Colyte (polyethylene glycol 3350 and electrolytes) Three (3) Days Before Your Colonoscopy Do NOT eat high-fiber foods - such as popcorn, beans, seeds (flax, sunflower, quinoa), multigrain bread, nuts, salad/vegetables, or fresh and dried fruit. One (1) Day Before Your Colonoscopy Only drink clear liquids the ENTIRE DAY before your colonoscopy. Do NOT eat any solid foods. Drink at least 8 ounces of clear liquids every hour after waking up. The clear liquids you can drink include: Clear Liquid (NO RED LIQUIDS) DO NOT DRINK Gatorade, Pedialyte or Powerade Clear broth or bouillon Coffee or tea (no milk or non-dairy creamer) Carbonated and non-carbonated soft drinks Wilian-Aid or other fruit flavored drinks Strained fruit juices (no pulp) Jell-O, popsicles, hard candy Water Alcohol Milk or non-dairy creamers Noodles or vegetables in soup Juice with pulp Liquid you cannot see through Do not use tobacco/vaping products The bowel preparation solution will be consumed in two parts. Mix the solution the evening before your colonoscopy and refrigerate before drinking. You may add the flavor pack that came with the bowel preparation. Do NOT add ice, sugar or any other flavorings to the solution. Part 1 At 6:00 PM - Evening before your colonoscopy Drink an 8-oz glass of bowel preparation every 10 minutes for a total of 8 glasses. You may continue to drink clear liquids until midnight. Part 2 On the day of your colonoscopy you may drink clear liquids up to (three) 3 hours before your procedure. 4 1/2 hours before your colonoscopy Drink an 8-oz glass of bowel preparation every 10 minutes for a total of 8 glasses. Fifteen (15) minutes later, drink an 8-oz glass of clear liquids every 15 minutes for a total of 2 glasses. You may continue to drink clear liquids up to (three) 3 hours before your exam. 2 02/2019 documented in this encounter [facility] 03-07-2022 Nurse Note REVIEW OF SYSTEMS: General: The patient denies fatigue, denies weight loss, denies weight gain, denies feeling hot, and denies feelings of cold. Eyes: The patient denies glaucoma, NOTES eye injury/surgery, wears glasses or contacts. Ear/Nose/Throat: The patient denies allergies, denies hayfever, denies ear infections, and denies bloody noses. Cardiovascular: The patient denies chest pain, denies heart disease, NOTES high blood pressure,denies cardiac stent, denies prior heart attack, denies irregular heart beat, denies high cholesterol, denies poor circulation, denies heart failure, other cardiac issues, denies claudication, denies cold feet, denies peripheral arterial stent. Respiratory: The patient denies tuberculosis, denies pneumonia, denies frequent cough, denies pulmonary embolism, denies shortness of breath, and denies coughing up blood. Gastrointestinal: The patient denies difficulty swallowing, NOTES acid reflux, denies ulcers, denies vomiting, denies jaundice/hepatitis, NOTES gallbladder problems, denies black or tarry stools, denies hemorrhoids, denies bleeding from rectum, denies diverticulitis, denies constipation, denies diarrhea, denies loss of stool control, and denies hernias. Kidney/Bladder: The patient denies kidney stones, denies urine infections, and denies bloody urine. Skin: The patient denies a history of skin cancer, denies bleeding/changing moles, and denies a history of skin rash. Neurologic: The patient denies a history of epilepsy/convulsions, denies headaches, denies head/spinal injuries, and denies stroke/TIA. Psychiatric: The patient denies psychiatric medications, denies depression, and denies voices, denies substance abuse. Endocrine: The patient denies thyroid disorders, denies diabetes, and denies hormonal problems. Hematologic: The patient denies a history of bruising, denies bleeding, and denies anemia, denies blood clots. Infections: The patient denies a history of measles and mumps, denies rheumatic fever, and denies sexually transmitted diseases. Musculoskeletal: The patient denies back pain/injury, denies back problems, denies sciatica, denies knee/foot trouble, denies arthritis, or denies gout. When was patient's last Mammogram screening? 2021 Last Colonoscopy: 2006 Marline Dennis RN documented in this encounter [facility] 02-06-2022 Miscellaneous Notes Patient has been identified by name and date of : Yes Requested Prescriptions Pending Prescriptions Disp Refills amLODIPine (NORVASC) 2.5 mg tablet 90 tablet 0 Sig: Take 1 tablet by mouth once daily. RX INSTRUCTIONS: Patient aware RX will be sent to pharmacy. No need to notify patient. Sent [employer] message to schedule visit. Beverly Gonsalez LPN documented in this encounter [facility] 01-31-2022 Miscellaneous Notes Patient informed and verbalized understanding. No questions at this time. Denies RUQ pain. Rosario Nolasco Ultrasound shows fatty liver. Watching weight will often help. Does show gallstones. We usually don't do things with them unless the patient is having symptoms. Call if any ruq pain after eating etc. documented in this encounter [facility] 01-27-2022 History of Present illness Narrative Radiology Service Progress Note PATIENT NAME: Vy Osorio DATE OF SERVICE: January 27, 2022 TIME: 2:05 PM PATIENT IDENTITY VERIFICATION COMPLETED USING TWO (2) IDENTIFIERS: Name and Date of confirmed by patient verbally. FALL SCREENING: Has the patient had 2 falls in the last year or 1 fall with injury or currently using an Ambulatory Assistive Device (Walker, Cane, Wheelchair, Crutches, etc.)? No PATIENT GENDER DATA: Female. status: : No status: NO. PATIENT RELEVANT IMPLANT DATA REVIEWED: Not Applicable RADIOLOGY DEPARTMENT: Ultrasound PERIPHERAL IV DATA: Not applicable SIGNED BY: Faby Frazier RDMS RVT January 27, 2022 2:05 PM documented in this encounter [facility] 01-24-2022 Miscellaneous Notes TC to pt, notified of results/provider response. She verbalized understanding. Schedulers please assist pt with scheduling liver ultrasound. Charles Parry LPN Sodium is normal. Alk phos shows liver portion is up. Check liver ultrasound to make sure is ok. documented in this encounter [facility] 01-04-2022 Miscellaneous Notes Deandre with [facility] calls to verify current omeprazole order. Verified order to be omeprazole 20 mg twice daily per most recent OV note. Katiana Anthony RN documented in this encounter [facility] 01-04-2022 Miscellaneous Notes RX INSTRUCTIONS: Patient aware RX will be sent to pharmacy. No need to notify patient. Last OV: 05/31/21 with GB Last refill: 01/17/21 With 30 and 5 refills Follow up: No F/U appointment scheduled at this time Berkley Salguero MA documented in this encounter [facility] 08-24-2021 Miscellaneous Notes Patient has been identified by name and date of : Yes Patient phones for refill(s): Pending Prescriptions Disp Refills IRBESARTAN 300 MG TABLET 90 tablet 0 Sig: Take 1 tablet by mouth once daily. BECKY: No Date of last office visit in primary care: 05/31/21 Last 2 Encounter Wt Readings: Date: Wt: 05/31/2021 94.3 kg (208 lb) 11/06/2020 94.3 kg (208 lb) Previous labs/tests for medication: Not applicable Please advise. Thank you. Tonia Pelletier LPN documented in this encounter [facility] documented as of this encounter (statuses as of 08/24/2021) [address] History of Past illness Narrative* Problem Noted Date Resolved Date Osteopenia 11/08/2007 04/29/2018 documented as of this encounter (statuses as of 08/24/2021) [address] History of Past illness Narrative* Problem Noted Date Resolved Date Osteopenia 11/08/2007 04/29/2018 documented as of this encounter (statuses as of 01/04/2022) [address] History of Past illness Narrative* Problem Noted Date Resolved Date Osteopenia 11/08/2007 04/29/2018 documented as of this encounter (statuses as of 01/04/2022) [address] History of Past illness Narrative* Problem Noted Date Resolved Date Osteopenia 11/08/2007 04/29/2018 documented as of this encounter (statuses as of 01/31/2022) [address] History of Past illness Narrative* Problem Noted Date Resolved Date Osteopenia 11/08/2007 04/29/2018 documented as of this encounter (statuses as of 02/01/2022) [address] History of Past illness Narrative* Problem Noted Date Resolved Date Osteopenia 11/08/2007 04/29/2018 documented as of this encounter (statuses as of 02/07/2022) [address] History of Past illness Narrative* Problem Noted Date Resolved Date Osteopenia 11/08/2007 04/29/2018 documented as of this encounter (statuses as of 02/20/2022) [address] History of Past illness Narrative* Problem Noted Date Resolved Date Osteopenia 11/08/2007 04/29/2018 documented as of this encounter (statuses as of 03/07/2022) [address] History of Past illness Narrative* Problem Noted Date Resolved Date Osteopenia 11/08/2007 04/29/2018 documented as of this encounter (statuses as of 03/15/2022) [address] History of Past illness Narrative* Problem Noted Date Resolved Date Osteopenia 11/08/2007 04/29/2018 documented as of this encounter (statuses as of 05/02/2022) [address] History of Past illness Narrative* Problem Noted Date Resolved Date Osteopenia 11/08/2007 04/29/2018 documented as of this encounter (statuses as of 05/16/2022) [address] History of Past illness Narrative* Problem Noted Date Resolved Date Osteopenia 11/08/2007 04/29/2018 documented as of this encounter (statuses as of 05/16/2022) [address] History of Past illness Narrative* Problem Noted Date Resolved Date Osteopenia 11/08/2007 04/29/2018 Hepatitis C 06/08/2022 Overview: Was treated remotely. No follow up recommended. documented as of this encounter (statuses as of 06/08/2022) [address] History of Past illness Narrative* Problem Noted Date Resolved Date Osteopenia 11/08/2007 04/29/2018 Hepatitis C 06/08/2022 Overview: Was treated remotely. No follow up recommended. documented as of this encounter (statuses as of 08/30/2022) [address] History of Past illness Narrative* Problem Noted Date Diagnosed Date Resolved Date Osteopenia 11/08/2007 04/29/2018 Hepatitis C 06/08/2022 Overview: Was treated remotely. No follow up recommended. documented as of this encounter (statuses as of 11/17/2022) [address] History of Past illness Narrative* Problem Noted Date Diagnosed Date Resolved Date Osteopenia 11/08/2007 04/29/2018 Hepatitis C 06/08/2022 Overview: Was treated remotely. No follow up recommended. documented as of this encounter (statuses as of 12/07/2022) [facility] History of Past illness Narrative* Problem Noted Date Diagnosed Date Resolved Date Osteopenia 11/08/2007 04/29/2018 Hepatitis C 06/08/2022 Overview: Was treated remotely. No follow up recommended. documented as of this encounter (statuses as of 01/05/2023) [facility] History of Past illness Narrative* Problem Noted Date Diagnosed Date Resolved Date Osteopenia 11/08/2007 04/29/2018 Hepatitis C 06/08/2022 Overview: Was treated remotely. No follow up recommended. documented as of this encounter (statuses as of 01/28/2023) [address] History of Past illness Narrative* Problem Noted Date Diagnosed Date Resolved Date Osteopenia 11/08/2007 04/29/2018 Hepatitis C 06/08/2022 Overview: Was treated remotely. No follow up recommended. documented as of this encounter (statuses as of 01/28/2023) [place] [address] History of Past illness Narrative* Problem Noted Date Diagnosed Date Resolved Date Osteopenia 11/08/2007 04/29/2018 Hepatitis C 06/08/2022 Overview: Was treated remotely. No follow up recommended. documented as of this encounter (statuses as of 01/30/2023) [address] History of Past illness Narrative* Problem Noted Date Diagnosed Date Resolved Date Osteopenia 11/08/2007 04/29/2018 Hepatitis C 06/08/2022 Overview: Was treated remotely. No follow up recommended. documented as of this encounter (statuses as of 02/23/2023) [facility] Essential hypertension Unspecified essential hypertension documented in this encounter [facility] note* Diagnosis Depression, unspecified depression type documented in this encounter [facility] note* Diagnosis Essential hypertension Unspecified essential hypertension Dysmetabolic syndrome Dysmetabolic Syndrome X documented in this encounter [facility] note* Diagnosis Gallstones Calculus of gallbladder without mention of cholecystitis or obstruction documented in this encounter [facility] note* Diagnosis Elevated liver enzymes- Primary Other nonspecific abnormal serum enzyme levels documented in this encounter [facility] note* Diagnosis Essential hypertension Unspecified essential hypertension Dysmetabolic syndrome Dysmetabolic Syndrome X documented in this encounter [facility] note* Diagnosis Encounter for screening mammogram for breast cancer documented in this encounter [facility] note* Diagnosis Screening for colon cancer Special screening for malignant neoplasms, colon documented in this encounter [facility] note* Diagnosis Depression, unspecified depression type documented in this encounter [facility] note* Diagnosis Tubular adenoma- Primary Benign neoplasm of unspecified site Serrated polyp of colon documented in this encounter [facility] note* Diagnosis Vitamin D deficiency- Primary Unspecified vitamin D deficiency Essential hypertension Unspecified essential hypertension Dysmetabolic syndrome Dysmetabolic Syndrome X documented in this encounter [facility] note* Diagnosis Essential hypertension- Primary Unspecified essential hypertension Dysmetabolic syndrome Dysmetabolic Syndrome X Major depressive disorder, recurrent, in partial remission (HCC) Major depressive disorder, recurrent episode, in partial or unspecified remission Hyperglycemia Other abnormal glucose Vitamin D deficiency Unspecified vitamin D deficiency Elevated liver enzymes Other nonspecific abnormal serum enzyme levels History of hepatitis C Personal history of other infectious and parasitic disease documented in this encounter [facility] note* Diagnosis Essential hypertension Unspecified essential hypertension Dysmetabolic syndrome Dysmetabolic Syndrome X [facility]* Diagnosis Hyperglycemia- Primary Other abnormal glucose Essential hypertension Unspecified essential hypertension [facility] [place] [facility]* Diagnosis Ptosis of both eyelids- Primary Unspecified ptosis of eyelid Encounter for immunization Need for other specified prophylactic vaccination against single bacterial disease Essential hypertension Unspecified essential hypertension History of hepatitis C Personal history of other infectious and parasitic disease Hyperglycemia Other abnormal glucose Other osteoporosis without current pathological fracture Vitamin D deficiency Unspecified vitamin D deficiency Obesity, Class II, BMI 35-39.9 Obesity, unspecified Eye fatigue Visual discomfort Dysgeusia Disturbances of sensation of smell and taste Burning mouth syndrome Glossodynia Hyponatremia Hyposmolality and/or hyponatremia [facility] [place] [facility]* Diagnosis Burning mouth syndrome- Primary Glossodynia Dysgeusia Disturbances of sensation of smell and taste documented in this encounter [facility] note* Diagnosis Screening for colon cancer- Primary Special screening for malignant neoplasms, colon documented in this encounter [facility] note* Diagnosis Elevated liver enzymes Other nonspecific abnormal serum enzyme levels documented in this encounter [facility] note* Diagnosis Encounter for screening mammogram for breast cancer [facility]* Diagnosis Essential hypertension Unspecified essential hypertension Dysmetabolic syndrome Dysmetabolic Syndrome X documented in this encounter [facility] for referral (narrative)* Diagnostic Procedure Only (Routine) - Closed Specialty Diagnoses / Procedures Referred By Johnson crenshaw Referred To Contact US IMAGING Diagnoses Elevated liver enzymes Procedures US ABD RT UPPER QUADRANT US ABDOMINAL REAL TIME W/IMAGE LIMITED Kala Chang MD [address] [place] [address] [facility] Referral ID Status Reason Start Date Expiration Date V isits Requested Visits Authorized [id number] Closed Auto-Generate d Referral 01/27/2022 03/25/2022 1 1 [facility] for referral (narrative)* Diagnostic Procedure Only (Routine) - Pending Review Specialty Diagnoses / Procedures Referred By Johnson crenshaw Referred To Contact [facility] Diagnoses Encounter for screening mammogram for breast cancer Procedures RONALDO SCREENING SCREENING MAMMOGRAPHY BI 2-VIEW BREAST INC CAD Kala Chang MD [address] [place] [address] [facility] [address] [place] [address] Referral ID Status Reason Start Date Expiration Date Visits Requested Visits Authorized [id number] Pending Review Auto-Generat ed Referral 03/17/2023 1 1 [facility] for referral (narrative)* Outpatient Procedure (Routine) - Authorized Specialty Diagnoses / Procedures Referred By Johnson t Referred To Contact [facility] Diagnoses Screening for colon cancer Procedures COLONOSCOPY SCREENING COLONOSCOPY FLX DX W/COLLJ SPEC WHEN Becky Santoyo MD [address] [place] [address] [address] Referral ID Status Reason Start Date Expiration Date Visits Requested Visits Authorized [id number] Authorized Auto-Generat ed Referral 03/07/2023 1 1 [facility] for referral (narrative)* Outpatient Procedure (Routine) - Closed Specialty Diagnoses / Procedures Referred By Johnson crenshaw Referred To Contact [facility] Diagnoses Screening for colon cancer Procedures COLONOSCOPY SCREENING COLONOSCOPY FLX DX W/COLLJ SPEC WHEN Becky Santoyo MD [address] [place] [address] [address] Referral ID Status Reason Start Date Expiration Date V isits Requested Visits Authorized [id number] Closed Auto-Generate d Referral 03/07/2022 03/07/2023 1 1 [facility] for referral (narrative)* Diagnostic Procedure Only (Routine) - Closed Specialty Diagnoses / Procedures [facility] Referred To Contact US IMAGING Diagnoses Elevated liver enzymes Procedures US ABD RT UPPER QUADRANT US ABDOMINAL REAL TIME W/IMAGE LIMITED Klaa Chang MD [address] [place] [address] [place] [address] Referral ID Status Reason Start Date Expiration Date V isits Requested Visits Authorized [id number] Closed Auto-Generate d Referral 01/27/2022 03/25/2022 1 1 [facility] for referral (narrative)* Diagnostic Procedure Only (Routine) - Pending Review Specialty Diagnoses / Procedures Referred By Johnson crenshaw Referred To Contact [facility] Diagnoses Encounter for screening mammogram for breast cancer Procedures RONALDO SCREENING SCREENING MAMMOGRAPHY BI 2-VIEW BREAST INC CAD Kala Chang MD [address] [place] [address] [facility] [address] [place] [address] Referral ID Status Reason Start Date Expiration Date Visits Requested Visits Authorized [id number] Pending Review Auto-Generat ed Referral 01/24/2023 02/23/2024 [address] [facility] [place]* Outpatient Procedure (Routine) - Closed Specialty Diagnoses / Procedures Referred By Johnson crenshaw Referred To Contact [facility] Diagnoses Screening for colon cancer Procedures COLONOSCOPY SCREENING COLONOSCOPY FLX DX W/COLLJ SPEC WHEN Becky Santoyo MD [address] [place] [address] 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 Advance Directive(s) 05/12/2019 7:30 AM Advance Directive(s) 05/02/2019 10:50 AM Advance Directive(s) 06/17/2010 11:38 AM Documents on File Type Date Recorded Patient Subcontracts Manager Expl anation Advance Directive(s) 06/17/2010 11:38 AM Documents on File Type Date Recorded Patient Subcontracts Manager Expl anation Advance Directive(s) 06/17/2010 11:38 AM Reason for Referral Specialty Diagnoses / Procedures Referred By Johnson crenshaw Referred To Contact Ent - Otolaryngology Diagnoses Dysgeusia Procedures CONSULT TO ENT OFFICE/OUTPATIENT NEW HIGH MDM 60-74 MINUTES Kala Chang MD [address] [place] [address] Referral ID Status Reason Start Date Expiration Date Visits Requested Visits Authorized [id number] Pending Review PCP Requested Referral 12/06/2022 12/06/2023 1 1 Specialty Diagnoses / Procedures Referred By Johnson crenshaw Referred To Contact Ophthalmology Diagnoses Ptosis of both eyelids Eye fatigue Procedures CONSULT TO OPHTHALMOLOGY OFFICE/OUTPATIENT [facility] MDM 60-74 MINUTES Kala Chang MD [address] [place] [address] Referral ID Status Reason Start Date Expiration Date Visits Requested Visits Authorized [id number] Pending Review PCP Requested Referral 12/06/2022 12/06/2023 1 1 Medications Administered Section Inactive Administered Medications - up to 3 most recent administrations Medication Order MAR Action Action Date Dose Rate Site diphenhydrAMINE 12.5-50 mg injection (BENADRYL) 12.5-50 mg, INTRAVENOUS, DIRECTED, Starting on Sun04/19/22 at 1030, Until Sun04/19/22 at 1429, DOSING DIRECTED BY PHYSICIAN FOR PROCEDURAL SEDATION ONLY, Intraprocedure Given 04/19/2022 10:10 AM EST 50 mg fentaNYL 50 mcg/mL 25-100 mcg injection (SUBLIMAZE) 25-100 mcg, INTRAVENOUS, DIRECTED, Starting on Sun04/19/22 at 1030, Until Sun04/19/22 at 1429, DOSING DIRECTED BY PHYSICIAN FOR PROCEDURAL SEDATION ONLY, Intraprocedure Given 04/19/2022 10:15 AM EST 50 mcg Summary Purpose Family History No Family History Records Found Additional Source Comments Source Comments (unrecognize d section and content) In the event this informatio n is protected by the Federal Confidentiality of Alcohol and Drug Abuse Patient Records regulations: The Federal rules restrict any use of the information to criminally investigate or prosecute any alcohol or drug abuse patient.[facility] the event this information is protected by the Federal Confidentiality of Alcohol and Drug Abuse Patient Records regulations: The Federal rules restrict any use of the information to criminally investigate or prosecute any alcohol or drug abuse patient.[facility] the event this information is protected by the Federal Confidentiality of Alcohol and Drug Abuse Patient Records regulations: The Federal rules restrict any use of the information to criminally investigate or prosecute any alcohol or drug abuse patient.[facility] the event this information is protected by the Federal Confidentiality of Alcohol and Drug Abuse Patient Records regulations: The Federal rules restrict any use of the information to criminally investigate or prosecute any alcohol or drug abuse patient.[facility] the event this information is protected by the Federal Confidentiality of Alcohol and Drug Abuse Patient Records regulations: The Federal rules restrict any use of the information to criminally investigate or prosecute any alcohol or drug abuse patient.[facility] the event this information is protected by the Federal Confidentiality of Alcohol and Drug Abuse Patient Records regulations: The Federal rules restrict any use of the information to criminally investigate or prosecute any alcohol or drug abuse patient.[facility] the event this information is protected by the Federal Confidentiality of Alcohol and Drug Abuse Patient Records regulations: The Federal rules restrict any use of the information to criminally investigate or prosecute any alcohol or drug abuse patient.[facility] the event this information is protected by the Federal Confidentiality of Alcohol and Drug Abuse Patient Records regulations: The Federal rules restrict any use of the information to criminally investigate or prosecute any alcohol or drug abuse patient.[facility] the event this information is protected by the Federal Confidentiality of Alcohol and Drug Abuse Patient Records regulations: The Federal rules restrict any use of the information to criminally investigate or prosecute any alcohol or drug abuse patient.[facility] the event this information is protected by the Federal Confidentiality of Alcohol and Drug Abuse Patient Records regulations: The Federal rules restrict any use of the information to criminally investigate or prosecute any alcohol or drug abuse patient.[facility] the event this information is protected by the Federal Confidentiality of Alcohol and Drug Abuse Patient Records regulations: The Federal rules restrict any use of the information to criminally investigate or prosecute any alcohol or drug abuse patient.[facility] the event this information is protected by the Federal Confidentiality of Alcohol and Drug Abuse Patient Records regulations: The Federal rules restrict any use of the information to criminally investigate or prosecute any alcohol or drug abuse patient.[facility] the event this information is protected by the Federal Confidentiality of Alcohol and Drug Abuse Patient Records regulations: The Federal rules restrict any use of the information to criminally investigate or prosecute any alcohol or drug abuse patient.[facility] the event this information is protected by the Federal Confidentiality of Alcohol and Drug Abuse Patient Records regulations: The Federal rules restrict any use of the information to criminally investigate or prosecute any alcohol or drug abuse patient.[facility] the event this information is protected by the Federal Confidentiality of Alcohol and Drug Abuse Patient Records regulations: The Federal rules restrict any use of the information to criminally investigate or prosecute any alcohol or drug abuse patient.[facility] the event this information is protected by the Federal Confidentiality of Alcohol and Drug Abuse Patient Records regulations: The Federal rules restrict any use of the information to criminally investigate or prosecute any alcohol or drug abuse patient.[facility] the event this information is protected by the Federal Confidentiality of Alcohol and Drug Abuse Patient Records regulations: The Federal rules restrict any use of the information to criminally investigate or prosecute any alcohol or drug abuse patient.[facility] the event this information is protected by the Federal Confidentiality of Alcohol and Drug Abuse Patient Records regulations: The Federal rules restrict any use of the information to criminally investigate or prosecute any alcohol or drug abuse patient.[facility] the event this information is protected by the Federal Confidentiality of Alcohol and Drug Abuse Patient Records regulations: The Federal rules restrict any use of the information to criminally investigate or prosecute any alcohol or drug abuse patient.[facility] event this information is protected by the Federal Confidentiality of Alcohol and Drug Abuse Patient Records regulations: The Federal rules restrict any use of the information to criminally investigate or prosecute any alcohol or drug abuse patient.[facility] the event this information is protected by the Federal Confidentiality of Alcohol and Drug Abuse Patient Records regulations: The Federal rules restrict any use of the information to criminally investigate or prosecute any alcohol or drug abuse patient.[facility] the event this information is protected by the Federal Confidentiality of Alcohol and Drug Abuse Patient Records regulations: The Federal rules restrict any use of the information to criminally investigate or prosecute any alcohol or drug abuse patient.[facility] Reason for Visit (unrecogniz ed section and content) Reason Onset Date Comments Refill Request 01/03/2022 Reason Onset Date Comments Refill Request 01/04/2022 Reason Comments Results Reason Comments Results Reason Onset Date Comments Refill Request 02/06/2022 Reason Comments Consult Colon screening Specialty Diagnoses / Procedures Referred By Contac t Referred To Contact General Surgery Diagnoses Screening for colon cancer Procedures CONSULT TO GENERAL SURGERY OFFICE/OUTPATIENT [facility] MDM 60-74 MINUTES Kala Chang MD [address] [place] [address] Referral ID Status Reason Start Date Expiration Date Visits Requested Visits Authorized [id number] Pending Review PCP Requested Referral 03/02/2022 03/02/2023 1 1 Reason Onset Date Comments Refill Request 03/15/2022 Reason Comments Follow Up colonoscopy Reason Onset Date Comments Refill Request 05/16/2022 Reason Comments Follow Up Reason Onset Date Comments Refill Request 08/29/2022 Reason Comments Lab Orders Reason Comments 6 Month Exam Reason Comments Consult Dysgeusia/ tongue an d lower lip are burning and tingling, sx for the last 3 months Specialty Diagnoses / Procedures Referred By Contac t Referred To Contact Ent - Otolaryngology Diagnoses Dysgeusia Procedures CONSULT TO ENT OFFICE/OUTPATIENT [facility] MDM 60-74 MINUTES Kala Chang MD [address] [place] [address] Referral ID Status Reason Start Date Expiration Date Visits Requested Visits Authorized [id number] Pending Review PCP Requested Referral 12/06/2022 12/06/2023 1 1 Reason Comments Radiology US Specialty Diagnoses / Procedures Referred By Contac t Referred To Contact US IMAGING Diagnoses Elevated liver enzymes Procedures US ABD RT UPPER QUADRANT US ABDOMINAL REAL TIME W/IMAGE LIMITED Kala Chang MD [address] [place] [address] [place] [address] Referral ID Status Reason Start Date Expiration Date V isits Requested Visits Authorized [id number] Closed Auto-Generate d Referral 01/27/2022 03/25/2022 1 1 Reason Onset Date Comments Refill Request 02/23/2023 Care Teams (unrecognized sec tion and content) [employer] Relationship Specialty Start Date End Date Kala Chang MD [address] [place], [place] [address] PCP - General Family Practice 10/12/15 [employer] Relationship Specialty Start Date End Date Kala Chang MD [address] [place], [place] [id number] PCP - General Family Medicine 10/12/15 [employer]er Relationship Specialty Start Date End Date Kala Chang MD [address] [place] [address] PCP - General Family Medicine 10/12/15 [employer]er Relationship Specialty Start Date End Date Kala Chang MD [address] [place], [place] [id number] PCP - General Family Medicine 10/12/15 [employer] Relationship Specialty Start Date End Date Kala Chang MD [address] [place] [address] PCP - General Family Medicine 10/12/15 [employer]er Relationship Specialty Start Date End Date Kala Chang MD [address] [facility] [place] [address] PCP - General Family Medicine 10/12/15 [employer] As[employer]er Relationship Specialty Start Date End Date Kala Chang MD [address] [facility] [place] [address] PCP - General Family Medicine 10/12/15 [employer] As[employer]er Relationship Specialty Start Date End Date Kala Chang MD [address] [facility] [place] [address] PCP - General Family Medicine 10/12/15 [employer] As[employer]er Relationship Specialty Start Date End Date Kala Chang MD [address] [facility] [place] [address] PCP - General Family Medicine 10/12/15 [employer] As[employer]er Relationship Specialty Start Date End Date Kala Chang MD [address] [facility] [place] [address] PCP - General Family Medicine 10/12/15 [employer] As[employer]er Relationship Specialty Start Date End Date Kala Chang MD [address] [facility] [place] [address] PCP - General Family Medicine 10/12/15 [employer] As[employer]er Relationship Specialty Start Date End Date Kala Chang MD [address] [facility] [place] [address] PCP - General Family Medicine 10/12/15 [employer] As[employer]er Relationship Specialty Start Date End Date Kala Chang MD [address] [facility] [place] [address] PCP - General Family Medicine 10/12/15 [employer] As[employer]er Relationship Specialty Start Date End Date Kala Chang MD [address] [facility] [place] [address] PCP - General Family Medicine 10/12/15 [employer] As[employer]er Relationship Specialty Start Date End Date Kala Chang MD [address] [place], [place] [address] PCP - General Family Medicine 10/12/15 [employer]er Relationship Specialty Start Date End Date Kala Chang MD [address] [place], [place] [address] PCP - General Family [facility] 10/12/15 [employer] As[employer]er Relationship Specialty Start Date End Date Kala Chang MD [address] [place], [place] [id number] PCP - [facility] 10/12/15 [employer] As[employer]er Relationship Specialty Start Date End Date Kala Chang MD [address] [place], [place] [address] PCP - [facility] 10/12/15 [employer] As[employer]er Relationship Specialty Start Date End Date Kala Chang MD [address] [place], [place] [address] PCP - General Family [facility] 10/12/15 INFORMATION SOURCE (unrecogn ized section and content) FOR RECORDS PERTAINING TO PATIENTS WHO ARE OR HAVE BEEN ENROLLED IN A CHEMICAL DEPENDENCY/SUBSTANCEABUSE PROGRAM, SOME INFORMATION MAY BE OMITTED. This clinical summary was aggregated from multiple sources. Caution should be exercised in using it in the provision of clinical care. This summary normalizes information from multiple sources, and as a consequence, information in this document may materially change the coding, format and clinical context of patient data. In addition, data may be omitted in some cases. CLINICAL DECISIONS SHOULD BE BASED ON THE PRIMARY CLINICAL RECORDS. [facility]. provides no warranty or guarantee of the accuracy or completeness of information in this document.
== END 2023-05-24 19:26 | disposition home or self-care (01) ==
LOC: ED 15:02
PROVIDERS: Emergency Provider Emergency Medicine; PCP Family Medicine; Visit Provider Emergency Medicine
DX: R20.2 Paresthesia of skin (principal); E66.9 Obesity, unspecified
CPT/HCPCS: 70450; 71046; 80048; 81001; 84484; 85025; 93005; 99285; J7030